=== PATIENT | female | born 1950 | race Caucasian/White ===

== ENCOUNTER 2017-06-12 08:34 | Inpatient (IN) | payer BC, OTHER ==
--- NOTE | 2017-06-12 09:14 | PDOC ---
History of Present Illness - General Chief Complaint: Pain Stated Complaint: PRE-OP Time Seen by Provider: 06/12/17 08:45 - History of Present Illness Initial Comments: 06/12/17 09:37 The patient is a 66 year old female with a history of HTN, HLD, DM, PVD, who presents for evaluation and admission for a left ischemic toe. The patient reports a wound to her left 4th toe over the past month for which she has been followed by a podietrist. The patient reports continued symptoms despite treatment with antifungals, antibiotics, and nail removal. The patient was evaluated by Dr. Harper and there was concern for PVD that prevented wound healing as well as ischemic toe and sent the patient for admission. She reports some burning pain to the toe, but otherwise denies other symptoms. The patient denies fevers, chills, SOB, chest pain, nausea, vomiting, abdominal pain , or changes with urination or bowel movements. Past History - Past Medical History Allergies/Adverse Reactions: Allergies Allergy/AdvReac Type Severity Reaction Status Date / Time paxton Allergy Severe Itching Verified 06/12/17 08:37 COPD: No Diabetes: Yes HTN: Yes Hypercholesterolemia: Yes - Immunization History Immunization Up to Date: Yes - Suicide/Smoking/Psychosocial Hx Smoking History: Former smoker Have you smoked in the past 12 months: Yes If you are a former smoker, when did you quit?: 1 MONTH AGO Information on smoking cessation initiated: No Review of Systems - Review of Systems Comments:: 06/12/17 09:42 Constitutional: No fevers, chills, fatigue, malaise HEENT: No Rhinorrhea, nasal congestion, visual changes Cardiovascular: No chest pain, syncope, palpitations, lightheadedness Respiratory: No Cough, SOB, Hemoptysis, Gastrointestinal: No Abdominal pain, Nausea, Vomiting, Constipation, Diarrhea, Melena Genitourinary: No Dysuria, Frequency, Urgency, Hesitancy, Hematuria, Flank pain Musculoskeletal: Pain to the 4th left toe. No Myalgia, arthralgia Skin: No rashes, itching, bruising, pallor Neurologic: No Headache, Dizziness, Numbness, Weakness, or Tingling Psychiatric: No Hallucinations. No SI or HI *Physical Exam - Vital Signs Last Vital Signs Temp Pulse Resp BP Pulse Ox 97.7 F 78 18 141/60 100 06/12/17 08:37 06/12/17 08:37 06/12/17 08:37 06/12/17 08:37 06/12/17 08:37 - Physical Exam Comments: 06/12/17 09:43 General Appearance: Nourished. No Apparent Distress HEENT: EOMI, DEVEN. No Pharyngeal Erythema, Tonsillar Exudate, Tonsillar Erythema Neck: No Cervical Lymphadenopathy Respiratory/Chest: Lungs Clear, Normal Breath Sounds. No Crackles, Rales, Rhonchi, Wheezing Cardiovascular: Regular Rhythm, Regular Rate. No Murmur, Gallops, Rubs Gastrointestinal/Abdominal: Normal Bowel Sounds, Soft. No Guarding, Rebound, Tenderness Musculoskeletal: No CVA Tenderness Extremity: Ischemic left 4th toe. Diminished dp pulses in the lower extremities bilaterally but palpable. 4 sec capillary refill in the extremities. Possible monophasic flow on doppler of the dp and posterior tibial pulses. Integumentary: Normal Color, Dry, Warm Neurologic: Fully Oriented, Alert, Normal Mood/Affect, Normal Response, ED Treatment Course - LABORATORY CBC & Chemistry Diagram: 06/12/17 09:30 06/12/17 09:30 Medical Decision Making - Medical Decision Making 06/12/17 09:55 The patient is a 66 year old female with a history of HTN, HLD, DM, PVD, who presents for evaluation and admission for a left ischemic toe. Given the patient's physical exam, it is concerning for an ischemic digit or worsening wound infection. We will obtain a cbc, cmp, troponin, coags, ekg, and chest plain film to evaluate further and admit the patient for further management. We will continue to monitor and reassess in the meantime. 06/12/17 11:36 CBC, cmp, troponin, coags are unremarkable. Chest plain film is unremarkable. We discussed the case with Dr. Shea who is covering for Dr. Valladares who accepted the patient for admission. *DC/Admit/Observation/Transfer Diagnosis at time of Disposition: Ischemic necrosis of toe - Discharge Dispostion Condition at time of disposition: Stable Admit: Yes - Referrals Referrals: Bernard Valladares MD [Primary Care Provider] - - Patient Instructions - Post Discharge Activity
[2017-06-12 10:01] LABS: BASO % 1.2 % (0-2.0); EOS % 1.9 % (0-4.5); HEMATOCRIT 34.3 % (32.4-45.2); HEMOGLOBIN 11.7 GM/dL (10.7-15.3); LYMPH % 16.7 % (8-40); MCH 30.6 pg (25.7-33.7); MCHC 33.9 g/dl (32.0-36.0); MEAN CELL VOLUME 90.2 fl (80-96); MEAN PLT VOLUME 10.2 fl (7.5-11.1); MONO % 7.5 % (3.8-10.2); NEUT % 72.7 % (42.8-82.8); PLATELET COUNT 231 K/MM3 (134-434); RBC 3.81 M/mm3 (3.60-5.2); RDW 14.8 % (11.6-15.6); WHITE BLOOD COUNT 8.4 K/mm3 (4.0-10.0)
[2017-06-12 10:14] LABS: INR 0.94 (0.82-1.09); PROTHROMBIN TIME (PATIENT) 10.6 SEC (9.98-11.88)
[2017-06-12 10:16] LABS: ACTIVATED PTT 30.4 SECONDS (26.9-34.4)
[2017-06-12 10:35] LABS: ALBUMIN 3.5 g/dl (3.4-5.0); ANION GAP 9 (8-16); BILIRUBIN,TOTAL 0.4 mg/dL (0.2-1.0); BLOOD UREA NITROGEN 19 mg/dL (7-18); CALCIUM 9.2 mg/dL (8.5-10.1); CHLORIDE 102 mmol/L (98-107); CO2 27 mmol/L (21-32); CREATININE 0.8 mg/dL (0.55-1.02); GLUCOSE,RANDOM 145 mg/dL (74-106); SGPT/ALT 30 U/L (12-78); SODIUM 138 mmol/L (136-145); TOT PROT 7.3 g/dl (6.4-8.2)
[2017-06-12 10:37] LABS: ALK PHOS 109 U/L (45-117)
[2017-06-12 11:21] LABS: POTASSIUM 5.1 mmol/L (3.5-5.1); SGOT/AST 39 U/L (15-37)
--- NOTE | 2017-06-12 11:40 | EKG ---
Test Reason : Blood Pressure : / mmHG Vent. Rate : 059 BPM Atrial Rate : 059 BPM P-R Int : 120 ms QRS Dur : 102 ms QT Int : 436 ms P-R-T Axes : 050 054 019 degrees QTc Int : 431 ms SINUS BRADYCARDIA POSSIBLE LEFT ATRIAL ENLARGEMENT LEFT VENTRICULAR HYPERTROPHY NONSPECIFIC ST ABNORMALITY ABNORMAL ECG WHEN COMPARED WITH ECG OF 16-AUG-2006 12:45, NO SIGNIFICANT CHANGE WAS FOUND Confirmed by WOODY SANCHEZ MD ([id number]) on 06/12/2017 11:40:09 AM Referred By: Confirmed By:WOODY SANCHEZ MD
--- NOTE | 2017-06-12 12:20 | PDOC ---
Attending Attestation - Resident Resident Name: Mahad Boschel - ED Attending Attestation I have performed the following: I have examined & evaluated the patient, The case was reviewed & discussed with the resident, I agree w/resident's findings & plan - HPI HPI: 06/12/17 12:17 Patient with known history of peripheral arterial vascular disease presents with blackening of the distal right second toe. She states the toe has been dark for almost a month but is getting worse. She is applying some cream. There is been no redness, no fever, and no discharge from the wound. - Physicial Exam PE: 06/12/17 12:18 Patient is afebrile. Heart and lungs are normal. Abdomen is benign. Right lower extremity reveals significantly decreased posterior tibial and dorsalis pedis pulses in the right leg. The right second toe has a blackened area at the distal toe. There is no open wound and no discharge. The patient applied white cream to the area. On Doppler testing, there is unit aphasic poor flow to the posterior tibial and dorsalis pedis arteries. Capillary refill in the toes 1, and 3 through 5 is 3-4 seconds. Sensation is intact. Range of motion is intact. - Medical Decision Making 06/12/17 12:19 Impression: Peripheral arterial disease with ischemia of the distal right second toe. No rest pain. Plan: Patient to be admitted to vascular surgery. She reports that her vascular surgeon already did flow studies. Laboratory studies and x-ray with EKG ordered for preop assessment. Laboratory Results - last 24 hr 06/12/17 06/12/17 06/12/17 09:30 09:30 09:30 WBC 8.4 RBC 3.81 Hgb 11.7 Hct 34.3 MCV 90.2 MCH 30.6 MCHC 33.9 RDW 14.8 Plt Count 231 MPV 10.2 Neutrophils % 72.7 Lymphocytes % 16.7 Monocytes % 7.5 Eosinophils % 1.9 Basophils % 1.2 PT with INR 10.60 INR 0.94 PTT (Actin FS) 30.4 Sodium 138 Potassium 5.1 Chloride 102 Carbon Dioxide 27 Anion Gap 9 BUN 19 H Creatinine 0.8 Creat Clearance w eGFR > 60 Random Glucose 145 H Calcium 9.2 Total Bilirubin 0.4 AST 39 H ALT 30 Alkaline Phosphatase 109 Creatine Kinase 149 Troponin I 0.02 Total Protein 7.3 Albumin 3.5
[2017-06-12] MEDS ORDERED: VANCOMYCIN 1,000 MG in DEXTROSE 5%-WATER - 250 ML IVPB ONE (14:40)
[2017-06-12] MEDS ORDERED: PIPERACIL/TAZOB 3.375 GM 3.375 GM/50 ML PREMIX IVPB ONE (14:41)
--- NOTE | 2017-06-12 14:44 | HP ---
Admitting History and Physical - Primary Care Physician PCP: Jolie Sun I - Admission Chief Complaint: admitted for toe swelling History of Present Illness: The patient is a 66 year old female with a history of HTN, HLD, DM, PVD, who presents for evaluation and admission for a left 4th ischemic toe. The patient reports a wound to her left 4th toe over the past month for which she has been followed by a podietrist. The patient reports continued symptoms despite treatment with antifungals, antibiotics, and nail removal. The patient was evaluated by Dr. Harper and there was concern for PVD that prevented wound healing as well as ischemic toe and sent the patient for admission. She reports some burning pain to the toe, but otherwise denies other symptoms. The patient denies fevers, chills, SOB, chest pain, nausea, vomiting, abdominal pain , or changes with urination or bowel movements. History Source: Patient - Past Medical History Cardiovascular: Yes: AFIB, HTN, Hyperlipdemia Endocrine: Yes: Diabetes Insipidus - Past Surgical History Past Surgical History: Yes: None - Smoking History Smoking history: Former smoker Have you smoked in the past 12 months: Yes If you are a former smoker, when did you quit?: 1 MONTH AGO Home Medications - Allergies Allergies/Adverse Reactions: Allergies Allergy/AdvReac Type Severity Reaction Status Date / Time paxton Allergy Severe Itching Verified 06/12/17 08:37 Review of Systems - Review of Systems Musculoskeletal: reports: Extremity Pain, Joint Swelling, Other (swollen tender to touch left 3/4 toes, macerated skin bluish discoloration of toe nail) Physical Examination Vital Signs: Vital Signs Temperature 97.7 F 06/12/17 08:37 Pulse Rate 78 06/12/17 08:37 Respiratory Rate 18 06/12/17 08:37 Blood Pressure 141/60 06/12/17 08:37 O2 Sat by Pulse Oximetry (%) 100 06/12/17 08:37 Constitutional: Yes: Calm Cardiovascular: Yes: Regular Rate and Rhythm, S1, S2 Respiratory: Yes: CTA Bilaterally Gastrointestinal: Yes: Normal Bowel Sounds, Soft Extremities: Yes: Erythema, Other (swollen left 3/4 toes) Edema: Yes Neurological: Yes: Alert, Oriented Labs: CBC, BMP 06/12/17 09:30 06/12/17 09:30 Problem List - Problems (1) Ischemic necrosis of toe Assessment/Plan: vascular evaluation iv abx one dose ID eval podiarty xray of toes Code(s): I96 - GANGRENE, NOT ELSEWHERE CLASSIFIED (2) Diabetes Assessment/Plan: bgm sliding scale insulin lipid profile- cannot tolerate statin cause muscle cramps Code(s): E11.9 - TYPE 2 DIABETES MELLITUS WITHOUT COMPLICATIONS Qualifiers: Diabetes mellitus type: type 2 (3) HTN (hypertension) Assessment/Plan: diovan Code(s): I10 - ESSENTIAL (PRIMARY) HYPERTENSION
[2017-06-12] MEDS ORDERED: PIPERACILLIN/TAZOB 3.375 GM 3.375 GM in DEXTROSE 5%-WATER - 50 ML IVPB ONE (15:00)
[2017-06-12] MEDS ORDERED: PIPERACILLIN/TAZOB 3.375 GM 3.375 GM/50 ML BAG IVPB ONE (15:17)
[2017-06-12] MEDS ORDERED: VANCOMYCIN 1 GRAM (PRE-DOCKED) 1,000 MG/250 ML BAG IVPB ONE (15:17)
[2017-06-12] MEDS ORDERED: ACETAMINOPHEN 325 MG TABLET (FP) ONE (15:18)
[2017-06-12] MEDS: ACETAMINOPHEN 325 MG TABLET (FP) PO PRN ×2 (15:27→22:17)
[2017-06-12] MEDS: INSULIN SLIDING SCALE (NOVOLOG) 1 VIAL SQ SCH ×2 (16:46→22:22)
--- NOTE | 2017-06-12 16:52 | CON.CARD ---
Consult Consult Specialty:: Cardiology Reason for Consultation:: PreOp evaluation - History of Present Illness Chief Complaint: Cellulitis of the toe History of Present Illness: This is a 66 year old female with a PMH of HTN, HLD, DM, and PVD. She stated to me that she has a history of rheumatic heart disease. She presents now wit an ischemic left toe. She denies cardiac symptoms. EKG Sinus bradycardia at 59 BPM with normal intervals, normal axis, and NSSTTW changes. - Past Medical History Cardio/Vascular: Yes: AFIB, HTN, Hyperlipdemia Endocrine: Yes: Diabetes Insipidus - Past Surgical History Past Surgical History: Yes: None - Smoking History Smoking history: Former smoker Have you smoked in the past 12 months: Yes If you are a former smoker, when did you quit?: 1 MONTH AGO Home Medications - Allergies Allergies/Adverse Reactions: Allergies Allergy/AdvReac Type Severity Reaction Status Date / Time paxton Allergy Severe Itching Verified 06/12/17 08:37 Review of Systems Findings/Remarks: As per HPI Vital Signs: Vital Signs Temperature 97.7 F 06/12/17 08:37 Pulse Rate 76 06/12/17 13:55 Respiratory Rate 16 06/12/17 13:55 Blood Pressure 111/59 06/12/17 13:55 O2 Sat by Pulse Oximetry (%) 97 06/12/17 13:55 Constitutional: Yes: Well Nourished, No Distress HENT: Yes: WNL Neck: Yes: WNL Respiratory: Yes: CTA Bilaterally Gastrointestinal: Yes: Soft Cardiovascular: Yes: Regular Rate and Rhythm (NL S1S2, no MRHG) Extremities: Yes: WNL Edema: No Neurological: Yes: Alert, Oriented (Grossly non focal) - Other Data Labs, Other Data: CBC, BMP 06/12/17 09:30 06/12/17 09:30 INR, PTT INR 0.94 (0.82-1.09) 06/12/17 09:30 Troponin, BNP 06/12/17 09:30 Troponin I 0.02 Troponin, BNP 06/12/17 09:30 Troponin I 0.02 Assessment/Plan Preoperative Cardiac Evaluation Based on my clinical evaluation, EKG, and laboratory analysis, there are no cardiac contraindications to Vascular surgery. There is no need to start Beta Blockers at this time. An echocardiogram would be helpful to categorize the supposed "Rheumatic Heart Disease" history. Continue Valsartan 80 mg PO daily
--- NOTE | 2017-06-12 16:55 | PN ---
Progress Note (short form) - Note Progress Note: Vascular Surgery Pt seen and examined in ER. Seen in vascular clinic 2 weeks ago. Pt had US done in the office which showed --- Right leg - occluded prox superficial artery with reconstitution at above knee popliteal artery. Left leg -- Occluded proximal superficial femoral artery with reconstitution at above knee popliteal artery Mid tibio peroneal trunk 75-99% stenosis Pt will need angiogram once cleared from a medical and cardiac standpoint. Edvin Harper DO
[2017-06-12 18:30] VITALS: BMI 23.2
[2017-06-12] MEDS: HEPARIN NA (PORCINE) 5,000 UNITS/ML 1ML VIAL SQ SCH (22:17)
[2017-06-13] MEDS: ACETAMINOPHEN 325 MG TABLET (FP) PO PRN ×2 (03:43→15:05)
[2017-06-13] MEDS ORDERED: oxyCODONE HCL 5 MG TABLET PO ONE (04:15)
[2017-06-13] MEDS: INSULIN SLIDING SCALE (NOVOLOG) 1 VIAL SQ SCH ×4 (06:06→21:22)
[2017-06-13 08:02] LABS: BASO % 0.8 % (0-2.0); EOS % 2.8 % (0-4.5); HEMATOCRIT 31.1 % (32.4-45.2); HEMOGLOBIN 10.6 GM/dL (10.7-15.3); LYMPH % 34.1 % (8-40); MCH 30.7 pg (25.7-33.7); MCHC 34.2 g/dl (32.0-36.0); MEAN CELL VOLUME 89.8 fl (80-96); MEAN PLT VOLUME 10.1 fl (7.5-11.1); MONO % 6.9 % (3.8-10.2); NEUT % 55.4 % (42.8-82.8); PLATELET COUNT 188 K/MM3 (134-434); RBC 3.47 M/mm3 (3.60-5.2); RDW 14.1 % (11.6-15.6); WHITE BLOOD COUNT 8.1 K/mm3 (4.0-10.0)
[2017-06-13 08:18] LABS: INR 1.04 (0.82-1.09); PROTHROMBIN TIME (PATIENT) 11.7 SEC (9.98-11.88)
[2017-06-13 09:08] LABS: CHLORIDE 102 mmol/L (98-107); POTASSIUM 3.4 mmol/L (3.5-5.1); SODIUM 136 mmol/L (136-145)
[2017-06-13 09:10] LABS: CHOLESTEROL 208 mg/dL (50-200); HDL CHOLESTEROL 42 mg/dL (40-60); LDL CHOLESTEROL (ONLY SJRH) 140 mg/dL (5-100); TRIGLYCERIDES 194 mg/dL (35-160)
--- NOTE | 2017-06-13 09:19 | PN ---
Progress Note (short form) - Note Progress Note: Vascular Surgery Pt cleared by cardiology. Will order CTA to look at runoff into foot to help plan procedure. Edvin Harper DO
[2017-06-13 09:20] LABS: ALBUMIN 3.3 g/dl (3.4-5.0); ALK PHOS 95 U/L (45-117); ANION GAP 7 (8-16); BILIRUBIN,TOTAL 0.7 mg/dL (0.2-1.0); BLOOD UREA NITROGEN 20 mg/dL (7-18); CALCIUM 8.5 mg/dL (8.5-10.1); CO2 27 mmol/L (21-32); CREATININE 0.8 mg/dL (0.55-1.02); GLUCOSE,RANDOM 131 mg/dL (74-106); MAGNESIUM 1.7 mg/dL (1.8-2.4); PHOSPHOROUS 3.3 mg/dL (2.5-4.9); SGOT/AST 13 U/L (15-37); SGPT/ALT 21 U/L (12-78); TOT PROT 6.1 g/dl (6.4-8.2)
--- NOTE | 2017-06-13 09:34 | CON.ID ---
Consult Consult Specialty:: Infectious Disease Referred by:: Primary Team Reason for Consultation:: Infected Toe - History of Present Illness History of Present Illness: 66 year old F with pmh of HTN, HLD, PVD, and NIDDM presented with a painful 4th left toe. Patient stubbed her toe on a table 1 month prior and has been having worsening pain, redness, and swelling in her toe. Patient has been following with Podiatry for this toe. She has had multiple courses of abx without improvement as well as nail removal. Patient then was sent to Dr. Harper for a possible ischemic toe. Patient denies fever, chills, abdominal pain, shortness of breath, chest pain, urinary symptoms. Patient lives at home by herself with 1 cat. Denies recent travel. Prior smoker, denies alcohol, denies drug use. - Past Medical History Cardio/Vascular: Yes: AFIB, HTN, Hyperlipdemia ...: No Endocrine: Yes: Diabetes Insipidus - Past Surgical History Past Surgical History: Yes: None - Alcohol/Substance Use Hx Alcohol Use: Yes (2-3 BEERS A WEEK / WINE OCCASSIONALLY A WEEK) - Smoking History Smoking history: Former smoker Have you smoked in the past 12 months: Yes Aproximately how many cigarettes per day: 7 If you are a former smoker, when did you quit?: ONE MONTH AGO Home Medications - Allergies Allergies/Adverse Reactions: Allergies Allergy/AdvReac Type Severity Reaction Status Date / Time paxton Allergy Severe Itching Verified 06/12/17 08:37 - Home Medications Home Medications: Ambulatory Orders Aspirin [ASA -] 81 mg PO HS 06/12/17 Losartan/Hydrochlorothiazide [Hyzaar 100-25 Tablet] 1 each PO DAILY 06/12/17 Metformin HCl 1,000 mg PO BID 06/12/17 Silver Sulfadiazine 1% Top Cr [Silvadene -] 1 applic TP DAILY 06/12/17 Toprol Xl 100 mg PO DAILY 06/12/17 Review of Systems - Review of Systems Constitutional: denies: Chills, Fever Eyes: reports: No Symptoms HENT: reports: No Symptoms Neck: reports: No Symptoms Cardiovascular: reports: No Symptoms Respiratory: reports: No Symptoms Gastrointestinal: reports: No Symptoms Genitourinary: reports: No Symptoms Musculoskeletal: reports: Other (Toe pain) Integumentary: reports: Other (blue skin surrounding toe) Physical Exam Vital Signs: Vital Signs Temperature 98.5 F 06/13/17 09:00 Pulse Rate 57 L 06/13/17 09:00 Respiratory Rate 18 06/13/17 09:00 Blood Pressure 118/51 06/13/17 09:00 O2 Sat by Pulse Oximetry (%) 98 06/12/17 21:00 Constitutional: Yes: Well Nourished, No Distress, Calm Eyes: Yes: Conjunctiva Clear, EOM Intact HENT: Yes: Atraumatic, Normocephalic Neck: Yes: Supple, Trachea Midline Cardiovascular: Yes: Regular Rate and Rhythm, S1, S2 Respiratory: Yes: Regular, CTA Bilaterally Gastrointestinal: Yes: Normal Bowel Sounds, Soft. No: Tenderness Musculoskeletal: Yes: WNL Extremities: Yes: Other (Left foot- onychomycosis surrounding toenails. Blue discoloration and tenderness of 4th toe with maceration in between 3rd and 4th digit.) Edema: No Neurological: Yes: Alert, Oriented Psychiatric: Yes: Alert, Oriented Labs: CBC, BMP 06/13/17 06:30 06/13/17 06:30 Laboratory Tests 06/13/17 06/13/17 06/13/17 06:30 06:30 06:30 WBC 8.1 Hgb 10.6 L Hct 31.1 L Plt Count 188 ESR BUN 20 H Creatinine 0.8 Hemoglobin A1c % 6.6 H Triglycerides Cholesterol Total LDL Cholesterol HDL Cholesterol 06/13/17 06/13/17 06:30 06:30 WBC Hgb Hct Plt Count ESR 36 H BUN Creatinine Hemoglobin A1c % Triglycerides 194 H Cholesterol 208 H Total LDL Cholesterol 140 H HDL Cholesterol 42 Assessment/Plan Assessment: 1. Left 4th toe infection/maceration 2. Vascular occlusion 3. Non Insulin Dependent Diabetes Mellitus Plan: -Augmentin 875 BID -Vascular Consult with Dr. Harper -Cardiology on board
--- NOTE | 2017-06-13 10:23 | PN ---
Teaching Attending Note Name of Resident: Ziyad Malik ATTENDING PHYSICIAN STATEMENT I saw and evaluated the patient. I reviewed the resident's note and discussed the case with the resident. I agree with the resident's findings and plan as documented. SUBJECTIVE:Case reviewed with resident and Dr Harper OBJECTIVE:Major issue now seem vascular with severe arterial vascular disease. Component of infection ulcer between 3rd 4th toe ASSESSMENT AND PLAN: [id number] bid for a week with vascular workup per Dr Harper angiogram Seen by cardiology Problem List - Problems (1) Peripheral vascular disease of lower extremity with ulceration Code(s): I73.9 - PERIPHERAL VASCULAR DISEASE, UNSPECIFIED; L97.909 - NON-PRS CHRONIC ULC UNSP PRT OF UNSP LOW LEG W UNSP SEVERITY (2) Diabetes Code(s): E11.9 - TYPE 2 DIABETES MELLITUS WITHOUT COMPLICATIONS Qualifiers: Diabetes mellitus type: type 2 (3) Ischemic necrosis of toe Code(s): I96 - GANGRENE, NOT ELSEWHERE CLASSIFIED
[2017-06-13] MEDS ORDERED: PT OWN MED DRAWER 7, Y5N ONE (11:11)
[2017-06-13] MEDS: HEPARIN NA (PORCINE) 5,000 UNITS/ML 1ML VIAL SQ SCH ×2 (11:51→21:30)
[2017-06-13] MEDS: VALSARTAN 80 MG TABLET (UD) PO SCH (11:51)
[2017-06-13] MEDS ORDERED: MAGNESIUM 1GM/D5W 100ML - 100 ML IVPB IVPB ONE (14:24)
[2017-06-13] MEDS ORDERED: POTASSIUM CHLORIDE TABS 20 MEQ TABLET.ER (FP) PO ONE (14:25)
--- NOTE | 2017-06-13 14:30 | PN ---
Progress Note, Physician Chief Complaint: patient in bed awake alert - Current Medication List Current Medications: Active Medications Acetaminophen (Tylenol -) 650 mg PO Q6H PRN PRN Reason: FEVER Last Admin: 06/13/17 03:43 Dose: 650 mg Amoxicillin/Clavulanate Potassium (Augmentin - 875mg Tablet) 1 tab PO BID@0800, 1730 [facility] Heparin Sodium (Porcine) (Heparin -) 5,000 unit SQ BID [facility] Last Admin: 06/13/17 11:51 Dose: 5,000 unit Insulin Aspart (Novolog Vial Sliding Scale -) 1 vial SQ ACHS [facility] PRN Reason: Protocol Last Admin: 06/13/17 11:52 Dose: Not Given Magnesium Sulfate (Magnesium Sulfate) 1 gm IVPB ONCE ONE Stop: 06/13/17 14:25 Potassium Chloride (K-Dur -) 20 meq PO ONCE ONE Stop: 06/13/17 14:26 Valsartan (Diovan -) 80 mg PO DAILY [facility] Last Admin: 06/13/17 11:51 Dose: 80 mg - Objective Vital Signs: Vital Signs Temperature 98.5 F 06/13/17 09:00 Pulse Rate 57 L 06/13/17 09:00 Respiratory Rate 18 06/13/17 09:00 Blood Pressure 118/51 06/13/17 09:00 O2 Sat by Pulse Oximetry (%) 98 06/12/17 21:00 Constitutional: Yes: Calm Cardiovascular: Yes: Regular Rate and Rhythm, S1, S2 Respiratory: Yes: CTA Bilaterally Gastrointestinal: Yes: Normal Bowel Sounds, Soft Extremities: Yes: Other (foot swelling decreased slightly) Neurological: Yes: Alert, Oriented Labs: CBC, BMP 06/13/17 06:30 06/13/17 06:30 INR, PTT INR 1.04 (0.82-1.09) 06/13/17 06:30 Problem List - Problems (1) Ischemic necrosis of toe Assessment/Plan: vascular evaluation seen plan for angiogram- aorta with CTA runoff ordered iv abx one dose ID eval podiarty xray of toes Code(s): I96 - GANGRENE, NOT ELSEWHERE CLASSIFIED (2) Diabetes Assessment/Plan: bgm sliding scale insulin lipid profile- cannot tolerate statin cause muscle cramps lipid panel noted an lovaza ordered Code(s): E11.9 - TYPE 2 DIABETES MELLITUS WITHOUT COMPLICATIONS Qualifiers: Diabetes mellitus type: type 2 (3) HTN (hypertension) Assessment/Plan: diovan Code(s): I10 - ESSENTIAL (PRIMARY) HYPERTENSION (4) Disorder of electrolytes Assessment/Plan: magnesium and potassium ordered recheck in am Code(s): E87.8 - OTH DISORDERS OF ELECTROLYTE AND FLUID BALANCE, NEC
[2017-06-13] MEDS: AMOX TR/POT CLAV 875MG/125MG TABLETS (FP) PO SCH (17:34)
[2017-06-13] MEDS: oxyCODONE HCL 5 MG TABLET PO PRN (18:11)
--- NOTE | 2017-06-13 19:37 | PN ---
Progress Note (short form) - Note Progress Note: Vascular Surgery Pt seen and examined. Gangrene of left toe. CTA shows SFA occlusion , and popliteal artery stenosis. Right leg shows sfa occlusion. Pt has been a long time smoker. Pt will need angiogram on friday. Edvin Harper DO
[2017-06-13] MEDS: OMEGA-3 ACID ETHYL ESTERS (FATTY-ACIDS) 1 GM CAPSULE (FP) PO SCH (21:30)
[2017-06-14] MEDS: oxyCODONE HCL 5 MG TABLET PO PRN ×4 (00:43→19:55)
[2017-06-14] MEDS: INSULIN SLIDING SCALE (NOVOLOG) 1 VIAL SQ SCH ×4 (06:05→21:42)
--- NOTE | 2017-06-14 08:08 | CONSULT ---
Consult - text type - Consultation Consultation Note: Podiatry Consultation: 66 year old DM, PVD F presents for admission for gangrenous changes to L 4th digit after ingrown nail procedure, for approximately 1 month. Denies F/V/N/C/ SOB/CP. Afebrile, VSS. PMHx: DM, HTN, HLP, PVD Meds: noted ALL: paxton LIBBY: L foot: pedal pulses non-palpable, TG wnl, CFT absent to fourth digit. Gangrenous changes distal 1/2 of fourth digit, no purulence, no fluctuance, no ascending cellulitis, no signs of infection. Pedal pulses non-palpable. WBC: 8.1 ESR: 36 L foot XR: no acute process seen Imp: 66 year old DM, PVD F with L fourth digit gangrene 1. IV abx 2. For angio Friday 3. Will follow based on angio. Thanks for the consult. Gustabo Mejia DPM
[2017-06-14 08:25] LABS: ALBUMIN 3.6 g/dl (3.4-5.0); ANION GAP 6 (8-16); BLOOD UREA NITROGEN 13 mg/dL (7-18); CALCIUM 9.2 mg/dL (8.5-10.1); CHLORIDE 102 mmol/L (98-107); CO2 30 mmol/L (21-32); GLUCOSE,RANDOM 146 mg/dL (74-106); MAGNESIUM 1.9 mg/dL (1.8-2.4); POTASSIUM 3.6 mmol/L (3.5-5.1); SODIUM 138 mmol/L (136-145)
[2017-06-14 08:29] LABS: ALK PHOS 101 U/L (45-117); BILIRUBIN,TOTAL 0.5 mg/dL (0.2-1.0); CREATININE 0.7 mg/dL (0.55-1.02); SGOT/AST 15 U/L (15-37); SGPT/ALT 21 U/L (12-78)
[2017-06-14] MEDS ORDERED: PT OWN MED DRAWER 7, Y5N ONE ×3 (09:53→21:41)
[2017-06-14] MEDS: AMOX TR/POT CLAV 875MG/125MG TABLETS (FP) PO SCH ×2 (09:54→17:41)
[2017-06-14] MEDS: VALSARTAN 80 MG TABLET (UD) PO SCH (09:54)
[2017-06-14] MEDS: HEPARIN NA (PORCINE) 5,000 UNITS/ML 1ML VIAL SQ SCH ×2 (09:55→21:42)
[2017-06-14] MEDS: OMEGA-3 ACID ETHYL ESTERS (FATTY-ACIDS) 1 GM CAPSULE (FP) PO SCH ×2 (09:55→21:42)
[2017-06-14] MEDS: ACETAMINOPHEN 325 MG TABLET (FP) PO PRN (12:47)
[2017-06-14] MEDS ORDERED: DOCUSATE SODIUM 100 MG CAPSULE (FP) PO PRN (17:43)
[2017-06-14] MEDS ORDERED: ACETAMINOPHEN 325 MG TABLET (FP) PO PRN (17:44)
--- NOTE | 2017-06-14 17:50 | PN ---
Progress Note, Physician Chief Complaint: Arterial occlusion History of Present Illness: NAD for Angio on Friday - Current Medication List Current Medications: Active Medications Acetaminophen (Tylenol -) 650 mg PO Q6H PRN PRN Reason: PAIN OR FEVER Amoxicillin/Clavulanate Potassium (Augmentin - 875mg Tablet) 1 tab PO BID@0800, 1730 [facility] Last Admin: 06/14/17 17:41 Dose: 1 tab Docusate Sodium (Colace -) 100 mg PO BID PRN PRN Reason: CONSTIPATION Heparin Sodium (Porcine) (Heparin -) 5,000 unit SQ BID [facility] Last Admin: 06/14/17 09:55 Dose: 5,000 unit Insulin Aspart (Novolog Vial Sliding Scale -) 1 vial SQ ACHS [facility] PRN Reason: Protocol Last Admin: 06/14/17 17:14 Dose: Not Given Morphine Sulfate (Morphine Injection -) 1 mg IVPUSH Q4H PRN PRN Reason: PAIN LEVEL 7 - 10 Skfts-6-Bwzg Ethyl Esters (Lovaza -) 2 gm PO BID [facility] Last Admin: 06/14/17 09:55 Dose: 2 gm Oxycodone HCl (Roxicodone -) 5 mg PO Q6H PRN PRN Reason: PAIN LEVEL 4 - 6 Valsartan (Diovan -) 80 mg PO DAILY [facility] Last Admin: 06/14/17 09:54 Dose: 80 mg - Objective Vital Signs: Vital Signs Temperature 97.6 F 06/14/17 16:05 Pulse Rate 70 06/14/17 16:05 Respiratory Rate 18 06/14/17 16:05 Blood Pressure 119/71 06/14/17 16:05 O2 Sat by Pulse Oximetry (%) 95 06/13/17 21:00 Constitutional: Yes: Well Nourished, No Distress, Calm Cardiovascular: Yes: Regular Rate and Rhythm Respiratory: Yes: Regular Musculoskeletal: Yes: Muscle Pain (BLLE) Edema: Yes Neurological: Yes: Alert, Oriented Psychiatric: Yes: Alert, Oriented Labs: CBC, BMP 06/13/17 06:30 06/14/17 07:00 INR, PTT INR 1.04 (0.82-1.09) 06/13/17 06:30 Problem List - Problems (1) HTN (hypertension) Assessment/Plan: -seen by cardiology -controlled Code(s): I10 - ESSENTIAL (PRIMARY) HYPERTENSION (2) Ischemic necrosis of toe Assessment/Plan: -pain management -seen by Vascular and podiatry -For Angio on Friday -po abx Code(s): I96 - GANGRENE, NOT ELSEWHERE CLASSIFIED (3) Peripheral vascular disease of lower extremity with ulceration Code(s): I73.9 - PERIPHERAL VASCULAR DISEASE, UNSPECIFIED; L97.909 - NON-PRS CHRONIC ULC UNSP PRT OF UNSP LOW LEG W UNSP SEVERITY Assessment/Plan see problem list
[2017-06-15] MEDS: MORPHINE SULFATE 10 MG/1 ML *VIAL IVPUSH PRN (01:59)
[2017-06-15] MEDS: INSULIN SLIDING SCALE (NOVOLOG) 1 VIAL SQ SCH ×4 (06:20→21:32)
[2017-06-15 07:44] LABS: EOS % 3.3 % (0-4.5); HEMOGLOBIN 10.5 GM/dL (10.7-15.3); LYMPH % 38.1 % (8-40); MCH 30.7 pg (25.7-33.7); MEAN CELL VOLUME 90.3 fl (80-96); MEAN PLT VOLUME 10.1 fl (7.5-11.1); MONO % 10.5 % (3.8-10.2); NEUT % 47.1 % (42.8-82.8); PLATELET COUNT 179 K/MM3 (134-434); RBC 3.43 M/mm3 (3.60-5.2); RDW 13.7 % (11.6-15.6); WHITE BLOOD COUNT 6.1 K/mm3 (4.0-10.0)
[2017-06-15 08:04] LABS: ALBUMIN 3.3 g/dl (3.4-5.0); ANION GAP 5 (8-16); BLOOD UREA NITROGEN 12 mg/dL (7-18); CHLORIDE 104 mmol/L (98-107); CO2 30 mmol/L (21-32); GLUCOSE,RANDOM 117 mg/dL (74-106); POTASSIUM 4.4 mmol/L (3.5-5.1); SODIUM 139 mmol/L (136-145)
[2017-06-15 08:09] LABS: ALK PHOS 96 U/L (45-117); BILIRUBIN,TOTAL 0.5 mg/dL (0.2-1.0); CREATININE 0.7 mg/dL (0.55-1.02); SGOT/AST 21 U/L (15-37); SGPT/ALT 26 U/L (12-78); TOT PROT 6.1 g/dl (6.4-8.2)
[2017-06-15] MEDS: AMOX TR/POT CLAV 875MG/125MG TABLETS (FP) PO SCH ×2 (08:48→17:31)
[2017-06-15] MEDS ORDERED: PT OWN MED DRAWER 7, Y5N ONE ×2 (10:15→20:18)
[2017-06-15] MEDS: OMEGA-3 ACID ETHYL ESTERS (FATTY-ACIDS) 1 GM CAPSULE (FP) PO SCH ×2 (10:19→21:32)
[2017-06-15] MEDS: VALSARTAN 80 MG TABLET (UD) PO SCH (10:19)
[2017-06-15] MEDS: HEPARIN NA (PORCINE) 5,000 UNITS/ML 1ML VIAL SQ SCH ×2 (10:19→21:31)
--- NOTE | 2017-06-15 12:36 | PN ---
Progress Note, Physician Chief Complaint: Arterial occlusion History of Present Illness: NAD for Angio on Friday - Current Medication List Current Medications: Active Medications Acetaminophen (Tylenol -) 650 mg PO Q6H PRN PRN Reason: FEVER Amoxicillin/Clavulanate Potassium (Augmentin - 875mg Tablet) 1 tab PO BID@0800, 1730 [facility] Last Admin: 06/15/17 08:48 Dose: 1 tab Docusate Sodium (Colace -) 100 mg PO BID PRN PRN Reason: CONSTIPATION Heparin Sodium (Porcine) (Heparin -) 5,000 unit SQ BID [facility] Last Admin: 06/15/17 10:19 Dose: 5,000 unit Insulin Aspart (Novolog Vial Sliding Scale -) 1 vial SQ ACHS [facility] PRN Reason: Protocol Last Admin: 06/15/17 11:45 Dose: Not Given Morphine Sulfate (Morphine Injection -) 1 mg IVPUSH Q4H PRN PRN Reason: PAIN LEVEL 7 - 10 Last Admin: 06/15/17 01:59 Dose: 1 mg Bboir-1-Txxp Ethyl Esters (Lovaza -) 2 gm PO BID [facility] Last Admin: 06/15/17 10:19 Dose: 2 gm Oxycodone HCl (Roxicodone -) 5 mg PO Q6H PRN PRN Reason: PAIN LEVEL 4 - 6 Last Admin: 06/14/17 19:55 Dose: 5 mg Valsartan (Diovan -) 80 mg PO DAILY [facility] Last Admin: 06/15/17 10:19 Dose: 80 mg - Objective Vital Signs: Vital Signs Temperature 97.6 F 06/15/17 06:00 Pulse Rate 68 06/15/17 06:00 Respiratory Rate 18 06/15/17 06:00 Blood Pressure 154/62 06/15/17 06:00 O2 Sat by Pulse Oximetry (%) 99 06/15/17 09:00 Constitutional: Yes: Well Nourished, No Distress, Calm Cardiovascular: Yes: Regular Rate and Rhythm Respiratory: Yes: Regular Gastrointestinal: Yes: Normal Bowel Sounds, Soft Musculoskeletal: Yes: Other (left foot pain,) Edema: Yes (Lfoot) Peripheral Pulses WNL: No Peripheral Pulses: Left Doralis Pedis: 0, Right Dorsalis Pedis: 0 Neurological: Yes: Alert, Oriented Psychiatric: Yes: Alert, Oriented Labs: CBC, BMP 06/15/17 07:27 06/15/17 07:27 INR, PTT INR 1.04 (0.82-1.09) 06/13/17 06:30 Problem List - Problems (1) HTN (hypertension) Assessment/Plan: -seen by cardiology -controlled Code(s): I10 - ESSENTIAL (PRIMARY) HYPERTENSION (2) Ischemic necrosis of toe Assessment/Plan: -pain management -seen by Vascular and podiatry -For Angio on Friday -po abx Code(s): I96 - GANGRENE, NOT ELSEWHERE CLASSIFIED (3) Peripheral vascular disease of lower extremity with ulceration Code(s): I73.9 - PERIPHERAL VASCULAR DISEASE, UNSPECIFIED; L97.909 - NON-PRS CHRONIC ULC UNSP PRT OF UNSP LOW LEG W UNSP SEVERITY Assessment/Plan see problem list
[2017-06-15] MEDS: oxyCODONE HCL 5 MG TABLET PO PRN ×2 (13:02→21:30)
[2017-06-16] MEDS: MORPHINE SULFATE 10 MG/1 ML *VIAL IVPUSH PRN ×2 (01:50→22:17)
[2017-06-16] MEDS: INSULIN SLIDING SCALE (NOVOLOG) 1 VIAL SQ SCH ×5 (06:22→21:44)
[2017-06-16 07:21] LABS: BASO % 0.9 % (0-2.0); EOS % 2.3 % (0-4.5); HEMATOCRIT 33.8 % (32.4-45.2); HEMOGLOBIN 11.4 GM/dL (10.7-15.3); LYMPH % 34.5 % (8-40); MCH 30.5 pg (25.7-33.7); MCHC 33.7 g/dl (32.0-36.0); MEAN CELL VOLUME 90.7 fl (80-96); MEAN PLT VOLUME 9.9 fl (7.5-11.1); MONO % 10.7 % (3.8-10.2); NEUT % 51.6 % (42.8-82.8); PLATELET COUNT 201 K/MM3 (134-434); RBC 3.73 M/mm3 (3.60-5.2); RDW 14.2 % (11.6-15.6); WHITE BLOOD COUNT 6.4 K/mm3 (4.0-10.0)
[2017-06-16 07:53] LABS: CHLORIDE 101 mmol/L (98-107); POTASSIUM 4.1 mmol/L (3.5-5.1); SODIUM 140 mmol/L (136-145)
[2017-06-16 08:03] LABS: ALBUMIN 3.6 g/dl (3.4-5.0); ALK PHOS 114 U/L (45-117); ANION GAP 10 (8-16); BILIRUBIN,TOTAL 0.6 mg/dL (0.2-1.0); BLOOD UREA NITROGEN 14 mg/dL (7-18); CALCIUM 9.4 mg/dL (8.5-10.1); CO2 29 mmol/L (21-32); CREATININE 0.7 mg/dL (0.55-1.02); GLUCOSE,RANDOM 126 mg/dL (74-106); SGOT/AST 42 U/L (15-37); SGPT/ALT 51 U/L (12-78); TOT PROT 7.3 g/dl (6.4-8.2)
[2017-06-16] MEDS: AMOX TR/POT CLAV 875MG/125MG TABLETS (FP) PO SCH ×2 (08:29→18:33)
[2017-06-16] MEDS: oxyCODONE HCL 5 MG TABLET PO PRN (09:36)
[2017-06-16] MEDS: VALSARTAN 80 MG TABLET (UD) PO SCH (09:38)
[2017-06-16] MEDS: HEPARIN NA (PORCINE) 5,000 UNITS/ML 1ML VIAL SQ SCH ×2 (09:39→21:45)
[2017-06-16] MEDS: OMEGA-3 ACID ETHYL ESTERS (FATTY-ACIDS) 1 GM CAPSULE (FP) PO SCH ×2 (09:41→21:44)
--- NOTE | 2017-06-16 12:31 | PN ---
Progress Note, Physician Chief Complaint: patient is awaiting angiogram today NPO - Current Medication List Current Medications: Active Medications Acetaminophen (Tylenol -) 650 mg PO Q6H PRN PRN Reason: FEVER Amoxicillin/Clavulanate Potassium (Augmentin - 875mg Tablet) 1 tab PO BID@0800, 1730 [facility] Last Admin: 06/16/17 08:29 Dose: Not Given Docusate Sodium (Colace -) 100 mg PO BID PRN PRN Reason: CONSTIPATION Heparin Sodium (Porcine) (Heparin -) 5,000 unit SQ BID [facility] Last Admin: 06/16/17 09:39 Dose: 5,000 unit Insulin Aspart (Novolog Vial Sliding Scale -) 1 vial SQ ACHS [facility] PRN Reason: Protocol Last Admin: 06/16/17 11:25 Dose: Not Given Morphine Sulfate (Morphine Injection -) 1 mg IVPUSH Q4H PRN PRN Reason: PAIN LEVEL 7 - 10 Last Admin: 06/16/17 01:50 Dose: 1 mg Qjoww-2-Uosk Ethyl Esters (Lovaza -) 2 gm PO BID [facility] Last Admin: 06/16/17 09:41 Dose: Not Given Oxycodone HCl (Roxicodone -) 5 mg PO Q6H PRN PRN Reason: PAIN LEVEL 4 - 6 Last Admin: 06/16/17 09:36 Dose: 5 mg Valsartan (Diovan -) 80 mg PO DAILY [facility] Last Admin: 06/16/17 09:38 Dose: 80 mg - Objective Vital Signs: Vital Signs Temperature 98.6 F 06/16/17 09:36 Pulse Rate 76 06/16/17 09:36 Respiratory Rate 18 06/16/17 09:36 Blood Pressure 130/64 06/16/17 09:36 O2 Sat by Pulse Oximetry (%) 96 06/16/17 09:00 Constitutional: Yes: Calm Cardiovascular: Yes: Regular Rate and Rhythm, S1, S2 Respiratory: Yes: CTA Bilaterally Gastrointestinal: Yes: Normal Bowel Sounds, Soft Wound/Incision: Yes: Other (foot swollen and toes macerated) Neurological: Yes: Alert, Oriented Labs: CBC, BMP 06/16/17 07:00 06/16/17 07:00 INR, PTT INR 1.04 (0.82-1.09) 06/13/17 06:30 Problem List - Problems (1) Toe ulcer due to DM Assessment/Plan: augmentin neuropathy start neurontin Code(s): E11.621 - TYPE 2 DIABETES MELLITUS WITH FOOT ULCER; L97.509 - NON- PRESSURE CHRONIC ULCER OTH PRT UNSP FOOT W UNSP SEVERITY (2) Ischemic necrosis of toe Assessment/Plan: vascular evaluation seen plan for angiogram today Code(s): I96 - GANGRENE, NOT ELSEWHERE CLASSIFIED (3) Diabetes Assessment/Plan: bgm sliding scale insulin lipid profile- cannot tolerate statin cause muscle cramps lipid panel noted an lovaza ordered Code(s): E11.9 - TYPE 2 DIABETES MELLITUS WITHOUT COMPLICATIONS Qualifiers: Diabetes mellitus type: type 2 (4) HTN (hypertension) Assessment/Plan: diovan Code(s): I10 - ESSENTIAL (PRIMARY) HYPERTENSION (5) Disorder of electrolytes Assessment/Plan: magnesium and potassium now ok Code(s): E87.8 - OTH DISORDERS OF ELECTROLYTE AND FLUID BALANCE, NEC
[2017-06-16] MEDS ORDERED: LIDOCAINE HCL 1%, 10 MG/ML (20ML VIAL) ONE (13:47)
[2017-06-16] MEDS ORDERED: HEPARIN NA (PORCINE) 5,000 UNITS/ML 1ML VIAL ONE (13:47)
[2017-06-16] MEDS ORDERED: PROMETHAZINE HCL 25 MG/1 ML VIAL IVPUSH PRN ×2 (14:03→16:30)
[2017-06-16] MEDS ORDERED: ONDANSETRON 4 MG/2 ML VIAL IVPUSH PRN ×2 (14:03→16:30)
[2017-06-16] MEDS ORDERED: LACTATED RINGERS SOLUTION 1,000 ML IV SCH ×2 (14:15→16:30)
[2017-06-16] MEDS ORDERED: ceFAZolin SODIUM 1 GM VIAL IVPB ONE (14:30)
[2017-06-16] MEDS ORDERED: LIDOCAINE HCL 1%, 10 MG/ML (20ML VIAL) PNB ONE ×2 (14:41)
[2017-06-16] MEDS ORDERED: HEPARIN NA (PORCINE) 5,000 UNITS/ML 1ML VIAL SQ ONE (16:00)
--- NOTE | 2017-06-16 16:10 | OP ---
Operative Note - Note: Operative Date: 06/16/17 Pre-Operative Diagnosis: left 4th toe gangrene Operation: Aortogram, LLE angiogram, SFA angioplasty with stent placement. Findings: SFA occlusion Post-Operative Diagnosis: Same as Pre-op Surgeon: Edvin Harper Anesthesia: Fractional Estimated Blood Loss (mls): 50 Operative Report Dictated: Yes
[2017-06-16] MEDS ORDERED: oxyCODONE HCL 5 MG TABLET PO PRN (16:30)
[2017-06-16] MEDS ORDERED: PIPERACIL/TAZOB 3.375 GM 3.375 GM/50 ML PREMIX IVPB ONE (16:30)
[2017-06-16] MEDS ORDERED: DOCUSATE SODIUM 100 MG CAPSULE (FP) PO PRN (16:30)
[2017-06-16] MEDS ORDERED: CLOPIDOGREL BISULFATE 75 MG TABLET (FP) ONE (16:40)
[2017-06-16] MEDS: CLOPIDOGREL BISULFATE 75 MG TABLET (FP) PO SCH (16:43)
[2017-06-16] MEDS ORDERED: PIPERACILLIN/TAZOB 3.375 GM 3.375 GM in DEXTROSE 5%-WATER - 50 ML IVPB ONE (16:45)
--- NOTE | 2017-06-16 19:18 | PN ---
Progress Note (short form) - Note Progress Note: Vascular Surgery S/P Left lower ext angiogram, angioplasty with stent. Pt started on plavix. Please dc on plavix. Can follow up in office in one week. Will set up HBO for pt as outpt. please make appt for pt prior to DC -- [phone] Nikunj baldwin DO
[2017-06-16] MEDS: GABAPENTIN 100 MG CAPSULE (FP) PO SCH (21:44)
[2017-06-16] MEDS ORDERED: GABAPENTIN 100 MG CAPSULE (FP) PO SCH (22:00)
[2017-06-17] MEDS: MORPHINE SULFATE 10 MG/1 ML *VIAL IVPUSH PRN ×3 (04:12→20:03)
[2017-06-17] MEDS: INSULIN SLIDING SCALE (NOVOLOG) 1 VIAL SQ SCH ×4 (06:02→21:33)
[2017-06-17 08:43] LABS: BASO % 0.6 % (0-2.0); EOS % 0.5 % (0-4.5); HEMATOCRIT 31.5 % (32.4-45.2); HEMOGLOBIN 10.9 GM/dL (10.7-15.3); LYMPH % 14.1 % (8-40); MCH 31.3 pg (25.7-33.7); MCHC 34.5 g/dl (32.0-36.0); MEAN CELL VOLUME 90.7 fl (80-96); MEAN PLT VOLUME 10.2 fl (7.5-11.1); MONO % 8.8 % (3.8-10.2); PLATELET COUNT 182 K/MM3 (134-434); RBC 3.47 M/mm3 (3.60-5.2)
[2017-06-17 09:08] LABS: BLOOD UREA NITROGEN 13 mg/dL (7-18); GLUCOSE,RANDOM 141 mg/dL (74-106)
[2017-06-17 09:09] LABS: ALBUMIN 3.3 g/dl (3.4-5.0); ANION GAP 9 (8-16); CALCIUM 8.5 mg/dL (8.5-10.1); CHLORIDE 100 mmol/L (98-107); CO2 26 mmol/L (21-32); POTASSIUM 3.9 mmol/L (3.5-5.1); SGPT/ALT 54 U/L (12-78); SODIUM 135 mmol/L (136-145)
[2017-06-17 09:11] LABS: ALK PHOS 108 U/L (45-117); BILIRUBIN,TOTAL 0.8 mg/dL (0.2-1.0); CREATININE 0.7 mg/dL (0.55-1.02); SGOT/AST 39 U/L (15-37); TOT PROT 6.6 g/dl (6.4-8.2)
[2017-06-17] MEDS: GABAPENTIN 100 MG CAPSULE (FP) PO SCH ×2 (09:39→21:33)
[2017-06-17] MEDS: CLOPIDOGREL BISULFATE 75 MG TABLET (FP) PO SCH (09:39)
[2017-06-17] MEDS: AMOX TR/POT CLAV 875MG/125MG TABLETS (FP) PO SCH ×2 (09:39→17:33)
[2017-06-17] MEDS: VALSARTAN 80 MG TABLET (UD) PO SCH (09:39)
[2017-06-17] MEDS: OMEGA-3 ACID ETHYL ESTERS (FATTY-ACIDS) 1 GM CAPSULE (FP) PO SCH ×2 (09:42→21:33)
[2017-06-17] MEDS ORDERED: PT OWN MED DRAWER 7, Y5N ONE (09:43)
[2017-06-17] MEDS: HEPARIN NA (PORCINE) 5,000 UNITS/ML 1ML VIAL SQ SCH ×2 (09:44→21:33)
--- NOTE | 2017-06-17 13:26 | PN ---
Progress Note (short form) - Note Progress Note: Podiatry: Seen/evaluated at bedside, NAD. Pain appropriately controlled, denies F/V/N/C/ SOB/CP. Afebrile, VSS. S/p LLE angioplasty/stent with Dr. Harper. LIBBY: L foot: dry distal tuft gangrene with no periwound erythema, no ascending cellulitis, no drainage, no active signs of infection. Moderate tenderness to palpation. WBC: 8.0 ESR: 36 Imp: 66 year old F with L 4th digit dry gangrene 1. Discussed treatment options with patient at length and she does not want amputation at this time. Will attempt to treat with local wound care, HBO therapy as outpatient. If condition worsens, will need partial amputation. Okay for discharge from my standpoint and we will watch her closely in wound healing center. Gustabo Mejia DPM
--- NOTE | 2017-06-17 13:35 | PN ---
Progress Note (short form) - Note Progress Note: POD #1 - s/p angiogram/angioplasty/stent placement of left leg under MAC. VSS. Pt. doing well, walking about room without difficulty. No complaints. No apparent anesthetic complications noted. Continue current care.
--- NOTE | 2017-06-17 15:06 | PN ---
Progress Note, Physician Chief Complaint: s/p angiogram now with temp 101 today tylenol cultures - Current Medication List Current Medications: Active Medications Acetaminophen (Tylenol -) 650 mg PO Q6H PRN PRN Reason: FEVER Amoxicillin/Clavulanate Potassium (Augmentin - 875mg Tablet) 1 tab PO BID@0800, 1730 [facility] Last Admin: 06/17/17 09:39 Dose: 1 tab Clopidogrel Bisulfate (Plavix -) 75 mg PO DAILY [facility] Last Admin: 06/17/17 09:39 Dose: 75 mg Docusate Sodium (Colace -) 100 mg PO Q12H PRN PRN Reason: CONSTIPATION Fentanyl (Sublimaze Injection -) 50 mcg IVPUSH Q5M PRN PRN Reason: PAIN-PACU ORDER X 4 DOSES ONLY Gabapentin (Neurontin -) 100 mg PO BID [facility] Last Admin: 06/17/17 09:39 Dose: 100 mg Heparin Sodium (Porcine) (Heparin -) 5,000 unit SQ BID [facility] Last Admin: 06/17/17 09:44 Dose: 5,000 unit Insulin Aspart (Novolog Vial Sliding Scale -) 1 vial SQ ACHS [facility] PRN Reason: Protocol Last Admin: 06/17/17 12:21 Dose: Not Given Morphine Sulfate (Morphine Injection -) 1 mg IVPUSH Q4H PRN PRN Reason: PAIN LEVEL 7 - 10 Last Admin: 06/17/17 14:15 Dose: 1 mg Javfl-9-Twtl Ethyl Esters (Lovaza -) 2 gm PO BID [facility] Last Admin: 06/17/17 09:42 Dose: 2 gm Ondansetron HCl (Zofran Injection) 4 mg IVPUSH Q6H PRN PRN Reason: NAUSEA AND/OR VOMITING Oxycodone HCl (Roxicodone -) 5 mg PO Q6H PRN PRN Reason: PAIN LEVEL 4 - 6 Promethazine HCl (Phenergan Injection -) 12.5 mg IVPUSH Q6H PRN PRN Reason: NAUSEA-FOR RESCUE AFTER 15 MIN Valsartan (Diovan -) 80 mg PO DAILY [facility] Last Admin: 06/17/17 09:39 Dose: 80 mg - Objective Vital Signs: Vital Signs Temperature 98.3 F 06/17/17 12:39 Pulse Rate 78 06/17/17 12:39 Respiratory Rate 19 06/17/17 12:39 Blood Pressure 143/66 06/17/17 12:39 O2 Sat by Pulse Oximetry (%) 96 06/17/17 09:00 Constitutional: Yes: Calm Cardiovascular: Yes: Regular Rate and Rhythm, S1, S2 Respiratory: Yes: CTA Bilaterally Gastrointestinal: Yes: Normal Bowel Sounds, Soft Extremities: Yes: Other (left foot edema decreased macerated skin btw two toes) Neurological: Yes: Alert, Oriented Labs: CBC, BMP 06/17/17 08:05 06/17/17 08:05 INR, PTT INR 1.04 (0.82-1.09) 06/13/17 06:30 Problem List - Problems (1) Fever Assessment/Plan: augmentin cultures ordered ID Follow up tylenol Code(s): R50.9 - FEVER, UNSPECIFIED (2) Ischemic necrosis of toe Assessment/Plan: s/p angiogram, s/p angioplasty Code(s): I96 - GANGRENE, NOT ELSEWHERE CLASSIFIED (3) Toe ulcer due to DM Assessment/Plan: augmentin neuropathy start neurontin Code(s): E11.621 - TYPE 2 DIABETES MELLITUS WITH FOOT ULCER; L97.509 - NON- PRESSURE CHRONIC ULCER OTH PRT UNSP FOOT W UNSP SEVERITY (4) Diabetes Assessment/Plan: bgm sliding scale insulin lipid profile- cannot tolerate statin cause muscle cramps lipid panel noted an lovaza ordered Code(s): E11.9 - TYPE 2 DIABETES MELLITUS WITHOUT COMPLICATIONS Qualifiers: Diabetes mellitus type: type 2 (5) HTN (hypertension) Assessment/Plan: diovan Code(s): I10 - ESSENTIAL (PRIMARY) HYPERTENSION (6) Disorder of electrolytes Assessment/Plan: magnesium and potassium now ok Code(s): E87.8 - OTH DISORDERS OF ELECTROLYTE AND FLUID BALANCE, NEC
--- NOTE | 2017-06-17 15:37 | OP ---
DATE OF OPERATION: 06/16/2017 PREOPERATIVE DIAGNOSIS: Left fourth toe gangrene. POSTOPERATIVE DIAGNOSIS: Left fourth toe gangrene. PROCEDURE: Aortogram, left lower extremity angiogram superficial femoral artery angioplasty with stent placement. SURGEON: Edvin Zheng D.O. ANESTHESIA: Fractional. BLOOD LOSS: 50 mL. INDICATION: The patient is a 66-year?old female who is a current smoker that comes in with bilateral lower extremity claudication but on the left foot she has left 4th toe gangrene. She got cleared by cardiology for the procedure. Patient was consented for the procedure understanding all risks, benefits, and alternatives and then taken to the operating room. DESCRIPTION OF PROCEDURE: Once in the operating room, she was laid on the operating table in a supine manner, and the area of the right and left groin are prepped and draped in a sterile surgical manner. We then went ahead and injected 10 mL of lidocaine 1% over the right common femoral artery. We then took a Micropuncture needle and punctured the right common femoral artery. A Micropuncture wire was inserted, and a traditional 6-Welsh sheath was inserted. We then placed 0.035 floppy guidewire up into the aorta followed by an Omniflush catheter. We then shot an aortogram by hand injection showing that the aorta and the iliac arteries were without any disease. We then placed our 0.035 floppy guidewire up and over to the left common femoral artery and our Omni sheath followed. We then shot an angiogram of the left lower extremity showing that the common femoral artery, the profunda, and the SFA were patent, but the mid SFA was occluded all the way down to above the knee. Patient had 1 vessel runoff which was peroneal into the foot. At this point, we placed 0.035 stiff guidewire into the SFA, removed our Omniflush catheter, and placed a 6 x 45 crossover sheath. 5000 units of IV heparin were administered to the patient. We then used our catheter, we were able to selectively go and cross our occlusion and placed a wire to the peroneal artery. We then went ahead and used our 5 x 200 balloon and performed angioplasty of the entire SFA that was occluded. We then went ahead and shot an angiogram showing that the SFA was dissected in multiple areas. We then used a 5 x 200 LifeStent and a 5 x 100 stent and then performed angioplasty of the stent. Completion angiogram now showed that the SFA was patent, and there was good brisk runoff into the foot via the peroneal artery . We brought our sheath up and over and Starclose device was deployed in the right common femoral artery. Pressure was held for 5 minutes until there was no more bleeding. The area was wet and dried, and Dermabond was placed. Patient tolerated the procedure with no complications. Patient was transferred to PACU in stable condition. EDVIN ZHENG DO [id number]
[2017-06-17] MEDS: ACETAMINOPHEN 325 MG TABLET (FP) PO PRN (21:32)
[2017-06-17 22:55] LABS: URINE APPEARANCE CLEAR; URINE BILIRUBIN NEGATIVE (NEGATIVE); URINE BLOOD NEGATIVE (NEGATIVE); URINE COLOR LTYELLOW; URINE GLUCOSE (UA) NEGATIVE (NEGATIVE); URINE KETONE TRACE (NEGATIVE); URINE LEUK ESTERASE TRACE (NEGATIVE); URINE NITRITE NEGATIVE (NEGATIVE); URINE PROTEIN NEGATIVE (NEGATIVE); URINE UROBILINOGEN NEGATIVE mg/dL (0.2-1.0)
[2017-06-17 23:01] LABS: EPI CELLS RARE /HPF (FEW); URINE BACTERIA RARE /hpf (NONE SEEN)
[2017-06-18] MEDS: INSULIN SLIDING SCALE (NOVOLOG) 1 VIAL SQ SCH ×4 (06:18→21:19)
[2017-06-18] MEDS: AMOX TR/POT CLAV 875MG/125MG TABLETS (FP) PO SCH ×2 (08:27→17:32)
[2017-06-18 08:36] LABS: CHLORIDE 103 mmol/L (98-107); POTASSIUM 4.1 mmol/L (3.5-5.1); SODIUM 138 mmol/L (136-145)
[2017-06-18 08:45] LABS: ALBUMIN 2.9 g/dl (3.4-5.0); ALK PHOS 97 U/L (45-117); ANION GAP 9 (8-16); BILIRUBIN,TOTAL 0.7 mg/dL (0.2-1.0); BLOOD UREA NITROGEN 10 mg/dL (7-18); CALCIUM 8.4 mg/dL (8.5-10.1); CO2 26 mmol/L (21-32); CREATININE 0.6 mg/dL (0.55-1.02); GLUCOSE,RANDOM 136 mg/dL (74-106); MAGNESIUM 1.9 mg/dL (1.8-2.4); SGOT/AST 28 U/L (15-37); SGPT/ALT 43 U/L (12-78)
[2017-06-18] MEDS: GABAPENTIN 100 MG CAPSULE (FP) PO SCH ×2 (09:34→21:18)
[2017-06-18] MEDS: VALSARTAN 80 MG TABLET (UD) PO SCH (09:34)
[2017-06-18] MEDS: CLOPIDOGREL BISULFATE 75 MG TABLET (FP) PO SCH (09:34)
[2017-06-18] MEDS: OMEGA-3 ACID ETHYL ESTERS (FATTY-ACIDS) 1 GM CAPSULE (FP) PO SCH ×2 (09:34→21:19)
[2017-06-18] MEDS: ACETAMINOPHEN 325 MG TABLET (FP) PO PRN ×2 (09:34→21:22)
[2017-06-18] MEDS: HEPARIN NA (PORCINE) 5,000 UNITS/ML 1ML VIAL SQ SCH ×2 (09:35→21:19)
--- NOTE | 2017-06-18 09:53 | PN ---
Progress Note, Physician Chief Complaint: ASLEEP COMFORTBLE NOTES AND EVENTS REVIEWED - Current Medication List Current Medications: Active Medications Acetaminophen (Tylenol -) 650 mg PO Q6H PRN PRN Reason: FEVER Last Admin: 06/18/17 09:34 Dose: 650 mg Amoxicillin/Clavulanate Potassium (Augmentin - 875mg Tablet) 1 tab PO BID@0800, 1730 [facility] Last Admin: 06/18/17 08:27 Dose: 1 tab Clopidogrel Bisulfate (Plavix -) 75 mg PO DAILY [facility] Last Admin: 06/18/17 09:34 Dose: 75 mg Docusate Sodium (Colace -) 100 mg PO Q12H PRN PRN Reason: CONSTIPATION Fentanyl (Sublimaze Injection -) 50 mcg IVPUSH Q5M PRN PRN Reason: PAIN-PACU ORDER X 4 DOSES ONLY Gabapentin (Neurontin -) 100 mg PO BID [facility] Last Admin: 06/18/17 09:34 Dose: 100 mg Heparin Sodium (Porcine) (Heparin -) 5,000 unit SQ BID [facility] Last Admin: 06/18/17 09:35 Dose: 5,000 unit Insulin Aspart (Novolog Vial Sliding Scale -) 1 vial SQ ACHS [facility] PRN Reason: Protocol Last Admin: 06/18/17 06:18 Dose: Not Given Morphine Sulfate (Morphine Injection -) 1 mg IVPUSH Q4H PRN PRN Reason: PAIN LEVEL 7 - 10 Last Admin: 06/17/17 20:03 Dose: 1 mg Qcwgm-2-Epui Ethyl Esters (Lovaza -) 2 gm PO BID [facility] Last Admin: 06/18/17 09:34 Dose: 2 gm Ondansetron HCl (Zofran Injection) 4 mg IVPUSH Q6H PRN PRN Reason: NAUSEA AND/OR VOMITING Oxycodone HCl (Roxicodone -) 5 mg PO Q6H PRN PRN Reason: PAIN LEVEL 4 - 6 Promethazine HCl (Phenergan Injection -) 12.5 mg IVPUSH Q6H PRN PRN Reason: NAUSEA-FOR RESCUE AFTER 15 MIN Valsartan (Diovan -) 80 mg PO DAILY [facility] Last Admin: 06/18/17 09:34 Dose: 80 mg - Objective Vital Signs: Vital Signs Temperature 99.0 F 06/18/17 06:00 Pulse Rate 69 03/07/18 06:00 Respiratory Rate 18 06/18/17 06:00 Blood Pressure 134/58 06/18/17 06:00 O2 Sat by Pulse Oximetry (%) 99 06/17/17 21:00 Constitutional: Yes: No Distress Eyes: Yes: WNL HENT: Yes: WNL Neck: Yes: WNL Cardiovascular: Yes: WNL Respiratory: Yes: WNL Gastrointestinal: Yes: WNL Genitourinary: Yes: WNL Musculoskeletal: Yes: Other Extremities: Yes: Erythema, Other Edema: Yes Edema: LLE: 1+ Integumentary: Yes: Erythema, Pressure Ulcer, Venous Stasis Changes Wound/Incision: Yes: Dressing Dry and Intact Neurological: Yes: Numbness, Paresthesia, Pre-Existing Deficit ...Motor Strength: LLE Psychiatric: Yes: WNL Labs: CBC, BMP 06/17/17 08:05 06/18/17 07:30 INR, PTT INR 1.04 (0.82-1.09) 06/13/17 06:30 Problem List - Problems (1) Diabetes Code(s): E11.9 - TYPE 2 DIABETES MELLITUS WITHOUT COMPLICATIONS Qualifiers: Diabetes mellitus type: type 2 Diabetes mellitus complication detail: with foot ulcer (2) Fever Code(s): R50.9 - FEVER, UNSPECIFIED (3) Ischemic necrosis of toe Code(s): I96 - GANGRENE, NOT ELSEWHERE CLASSIFIED (4) Peripheral vascular disease of lower extremity with ulceration Code(s): I73.9 - PERIPHERAL VASCULAR DISEASE, UNSPECIFIED; L97.909 - NON-PRS CHRONIC ULC UNSP PRT OF UNSP LOW LEG W UNSP SEVERITY (5) Toe ulcer due to DM Code(s): E11.621 - TYPE 2 DIABETES MELLITUS WITH FOOT ULCER; L97.509 - NON- PRESSURE CHRONIC ULCER OTH PRT UNSP FOOT W UNSP SEVERITY Assessment/Plan ON PO AUGMENTIN ID CONSULT FOR FEVERS PAIN CONTROL PATIENT REFUSING AMPUTATION WHICH WAS RECOMMENDED BY PODIATRY DR FISCHER. TREATING WITH WOUND CARE AND OUTPATIENT HBO THERAPY
--- NOTE | 2017-06-18 12:56 | PN ---
Progress Note, Physician History of Present Illness: Recurrent fever past 24-48hr C/O sneezing, foot pain Cultures pending - Current Medication List Current Medications: Active Medications Acetaminophen (Tylenol -) 650 mg PO Q6H PRN PRN Reason: FEVER Last Admin: 06/18/17 09:34 Dose: 650 mg Amoxicillin/Clavulanate Potassium (Augmentin - 875mg Tablet) 1 tab PO BID@0800, 1730 [facility] Last Admin: 06/18/17 08:27 Dose: 1 tab Clopidogrel Bisulfate (Plavix -) 75 mg PO DAILY [facility] Last Admin: 06/18/17 09:34 Dose: 75 mg Docusate Sodium (Colace -) 100 mg PO Q12H PRN PRN Reason: CONSTIPATION Fentanyl (Sublimaze Injection -) 50 mcg IVPUSH Q5M PRN PRN Reason: PAIN-PACU ORDER X 4 DOSES ONLY Gabapentin (Neurontin -) 100 mg PO BID [facility] Last Admin: 06/18/17 09:34 Dose: 100 mg Heparin Sodium (Porcine) (Heparin -) 5,000 unit SQ BID [facility] Last Admin: 06/18/17 09:35 Dose: 5,000 unit Insulin Aspart (Novolog Vial Sliding Scale -) 1 vial SQ ACHS [facility] PRN Reason: Protocol Last Admin: 06/18/17 11:28 Dose: Not Given Morphine Sulfate (Morphine Injection -) 1 mg IVPUSH Q4H PRN PRN Reason: PAIN LEVEL 7 - 10 Last Admin: 06/17/17 20:03 Dose: 1 mg Gvmhc-9-Tvzt Ethyl Esters (Lovaza -) 2 gm PO BID [facility] Last Admin: 06/18/17 09:34 Dose: 2 gm Ondansetron HCl (Zofran Injection) 4 mg IVPUSH Q6H PRN PRN Reason: NAUSEA AND/OR VOMITING Oxycodone HCl (Roxicodone -) 5 mg PO Q6H PRN PRN Reason: PAIN LEVEL 4 - 6 Promethazine HCl (Phenergan Injection -) 12.5 mg IVPUSH Q6H PRN PRN Reason: NAUSEA-FOR RESCUE AFTER 15 MIN Valsartan (Diovan -) 80 mg PO DAILY [facility] Last Admin: 06/18/17 09:34 Dose: 80 mg - Objective Vital Signs: Vital Signs Temperature 100.5 F H 06/18/17 08:00 Pulse Rate 85 03/07/18 08:00 Respiratory Rate 18 06/18/17 08:00 Blood Pressure 128/60 06/18/17 08:00 O2 Sat by Pulse Oximetry (%) 97 06/18/17 09:00 Constitutional: Yes: No Distress Eyes: Yes: Conjunctiva Clear Cardiovascular: Yes: Regular Rate and Rhythm, S1, S2 Respiratory: Yes: CTA Bilaterally Gastrointestinal: Yes: Normal Bowel Sounds, Soft. No: Tenderness Extremities: Yes: Other (hyperemia L foot, dry necrotic toe) Labs: CBC, BMP 06/17/17 08:05 06/18/17 07:30 INR, PTT INR 1.04 (0.82-1.09) 06/13/17 06:30 Assessment/Plan Fever ? source S/P angio Cultures pending Empiric zosyn/ vancomycin
[2017-06-18] MEDS ORDERED: PT OWN MED DRAWER 7, Y5N ONE ×4 (13:07→20:36)
[2017-06-18] MEDS: PIPERACILLIN/TAZOB 3.375 GM 3.375 GM in DEXTROSE 5%-WATER - 50 ML IVPB SCH ×2 (15:01→17:32)
[2017-06-18] MEDS: VANCOMYCIN 1,000 MG in DEXTROSE 5%-WATER - 250 ML IVPB SCH (15:35)
[2017-06-18] MEDS: MORPHINE SULFATE 10 MG/1 ML *VIAL IVPUSH PRN (22:09)
[2017-06-19] MEDS: PIPERACILLIN/TAZOB 3.375 GM 3.375 GM in DEXTROSE 5%-WATER - 50 ML IVPB SCH ×3 (01:12→18:39)
[2017-06-19] MEDS: VANCOMYCIN 1,000 MG in DEXTROSE 5%-WATER - 250 ML IVPB SCH ×2 (01:12→14:12)
[2017-06-19] MEDS: MORPHINE SULFATE 10 MG/1 ML *VIAL IVPUSH PRN (04:51)
[2017-06-19] MEDS: INSULIN SLIDING SCALE (NOVOLOG) 1 VIAL SQ SCH ×4 (06:13→22:22)
[2017-06-19] MEDS ORDERED: PT OWN MED DRAWER 7, Y5N ONE ×3 (09:34→19:30)
--- NOTE | 2017-06-19 09:34 | PN ---
Progress Note (short form) - Note Progress Note: VAscular Surgery Pt seen and examiend. S/P right lower ext angiogram, angioplasty with sfa stent placement. Doing well. foot swelling is normal after revascularization. Palpable PT pulse. Read podiatry note. Agree with HBO as out pt. Pt had 101 fever. Cultures all pending. will order cxy. Edvin Harper DO
[2017-06-19] MEDS: VALSARTAN 80 MG TABLET (UD) PO SCH (09:35)
[2017-06-19] MEDS: HEPARIN NA (PORCINE) 5,000 UNITS/ML 1ML VIAL SQ SCH ×2 (09:35→22:11)
[2017-06-19] MEDS: AMOX TR/POT CLAV 875MG/125MG TABLETS (FP) PO SCH ×2 (09:35→17:27)
[2017-06-19] MEDS: OMEGA-3 ACID ETHYL ESTERS (FATTY-ACIDS) 1 GM CAPSULE (FP) PO SCH ×2 (09:36→22:11)
[2017-06-19] MEDS: GABAPENTIN 100 MG CAPSULE (FP) PO SCH ×2 (09:36→22:11)
[2017-06-19] MEDS: CLOPIDOGREL BISULFATE 75 MG TABLET (FP) PO SCH (09:37)
--- NOTE | 2017-06-19 11:53 | DS ---
Physical Examination Vital Signs: Vital Signs Temperature 98.4 F 06/19/17 06:00 Pulse Rate 70 06/19/17 06:00 Respiratory Rate 20 06/19/17 06:00 Blood Pressure 117/52 06/19/17 06:00 O2 Sat by Pulse Oximetry (%) 97 06/18/17 09:00 wbc is normal no fever today cultures negative Constitutional: Yes: Calm Neck: Yes: Trachea Midline Cardiovascular: Yes: Regular Rate and Rhythm, S1, S2 Respiratory: Yes: CTA Bilaterally Gastrointestinal: Yes: Normal Bowel Sounds, Soft Extremities: Yes: Other (foot swelling noted ,toe dusky discoloration) Neurological: Yes: Alert, Oriented Labs: CBC, BMP 06/17/17 08:05 06/18/17 07:30 Discharge Summary Reason For Visit: ISCHEMIC NECROSIS OF TOE Current Active Problems Diabetes (Acute) Disorder of electrolytes (Acute) Fever (Acute) HTN (hypertension) (Acute) Ischemic necrosis of toe (Acute) Peripheral vascular disease of lower extremity with ulceration (Acute) Toe ulcer due to DM (Acute) Hospital Course: Primary Care Physician PCP: Jolie Sun I - Admission Chief Complaint: admitted for toe swelling History of Present Illness: The patient is a 66 year old female with a history of HTN, HLD, DM, PVD, who presents for evaluation and admission for a left 4th ischemic toe. The patient reports a wound to her left 4th toe over the past month for which she has been followed by a podietrist. The patient reports continued symptoms despite treatment with antifungals, antibiotics, and nail removal. The patient was evaluated by Dr. Harper and there was concern for PVD that prevented wound healing as well as ischemic toe and sent the patient for admission. She reports some burning pain to the toe, but otherwise denies other symptoms. The patient denies fevers, chills, SOB, chest pain, nausea, vomiting, abdominal pain , or changes with urination or bowel movements. History Source: Patient - Past Medical History Cardiovascular: Yes: AFIB, HTN, Hyperlipdemia Endocrine: Yes: Diabetes Insipidus - Past Surgical History Past Surgical History: Yes: None - Smoking History Smoking history: Former smoker Have you smoked in the past 12 months: Yes If you are a former smoker, when did you quit?: 1 MONTH AGO s/p angio gram and angioplasty, then spike fever and cultures done empiric antibiotic, cough flu swab ash need outpatient HBO and wound care Follow up. recommend amputation of toe by podiatry but doesnot want it at this time on oral augmentin zosyn and vancomycin Condition: Stable - Instructions Referrals: Bernard Valladares MD [Primary Care Provider] - Disposition: V[facility]/HOME HEALTH CARE - Home Medications Comprehensive Discharge Medication List: Ambulatory Orders Aspirin [ASA -] 81 mg PO HS 06/12/17 Losartan/Hydrochlorothiazide [Hyzaar 100-25 Tablet] 1 each PO DAILY 06/12/17 Metformin HCl 1,000 mg PO BID 06/12/17 Silver Sulfadiazine 1% Top Cr [Silvadene -] 1 applic TP DAILY 06/12/17 Toprol Xl 100 mg PO DAILY 06/12/17
--- NOTE | 2017-06-19 13:44 | PN ---
Progress Note, Physician History of Present Illness: Temps down today No complaints of foot pain at rest C/O Sneezing No c/o sinus congestion No rigors WBC WNL Cultures pending - Current Medication List Current Medications: Active Medications Acetaminophen (Tylenol -) 650 mg PO Q6H PRN PRN Reason: FEVER Last Admin: 06/18/17 21:22 Dose: 650 mg Amoxicillin/Clavulanate Potassium (Augmentin - 875mg Tablet) 1 tab PO BID@0800, 1730 [facility] Last Admin: 06/19/17 09:35 Dose: 1 tab Clopidogrel Bisulfate (Plavix -) 75 mg PO DAILY [facility] Last Admin: 06/19/17 09:37 Dose: 75 mg Docusate Sodium (Colace -) 100 mg PO Q12H PRN PRN Reason: CONSTIPATION Fentanyl (Sublimaze Injection -) 50 mcg IVPUSH Q5M PRN PRN Reason: PAIN-PACU ORDER X 4 DOSES ONLY Gabapentin (Neurontin -) 100 mg PO BID [facility] Last Admin: 06/19/17 09:36 Dose: 100 mg Heparin Sodium (Porcine) (Heparin -) 5,000 unit SQ BID [facility] Last Admin: 06/19/17 09:35 Dose: 5,000 unit Vancomycin HCl 1,000 mg/ (Dextrose) 250 mls @ 200 mls/hr IVPB BID@0100,1300 [facility] Last Admin: 06/19/17 01:12 Dose: 200 mls/hr Piperacillin Sod/Tazobactam (Sod 3.375 gm/ Dextrose) 50 mls @ 100 mls/hr IVPB Q8H-IV [facility] PRN Reason: Protocol Last Admin: 06/19/17 12:20 Dose: 100 mls/hr Insulin Aspart (Novolog Vial Sliding Scale -) 1 vial SQ ACHS [facility] PRN Reason: Protocol Last Admin: 06/19/17 12:07 Dose: Not Given Morphine Sulfate (Morphine Injection -) 1 mg IVPUSH Q4H PRN PRN Reason: PAIN LEVEL 7 - 10 Last Admin: 06/19/17 04:51 Dose: 1 mg [id number] Ethyl Esters (Lovaza -) 2 gm PO BID [facility] Last Admin: 06/19/17 09:36 Dose: 2 gm Ondansetron HCl (Zofran Injection) 4 mg IVPUSH Q6H PRN PRN Reason: NAUSEA AND/OR VOMITING Oxycodone HCl (Roxicodone -) 5 mg PO Q6H PRN PRN Reason: PAIN LEVEL 4 - 6 Last Admin: 06/18/17 15:00 Dose: 5 mg Promethazine HCl (Phenergan Injection -) 12.5 mg IVPUSH Q6H PRN PRN Reason: NAUSEA-FOR RESCUE AFTER 15 MIN Valsartan (Diovan -) 80 mg PO DAILY [facility] Last Admin: 06/19/17 09:35 Dose: 80 mg - Objective Vital Signs: Vital Signs Temperature 98.4 F 06/19/17 06:00 Pulse Rate 70 06/19/17 06:00 Respiratory Rate 20 06/19/17 06:00 Blood Pressure 117/52 06/19/17 06:00 O2 Sat by Pulse Oximetry (%) 97 06/18/17 09:00 Constitutional: Yes: No Distress Eyes: Yes: Conjunctiva Clear Cardiovascular: Yes: Regular Rate and Rhythm, S1, S2 Respiratory: Yes: CTA Bilaterally Gastrointestinal: Yes: Normal Bowel Sounds, Soft. No: Tenderness Extremities: Yes: Other (L foot warm. + Dry necrosis distal toe) Labs: CBC, BMP 06/17/17 08:05 06/18/17 07:30 INR, PTT INR 1.04 (0.82-1.09) 06/13/17 06:30 Assessment/Plan Fever ? source S/P angio Cultures pending Obtain influenza screen Empiric zosyn/ vancomycin
[2017-06-19] MEDS ORDERED: INSULIN (NOVOLOG) ASPART 100 UNITS/ML 10ML VIAL ONE (19:30)
[2017-06-20] MEDS: VANCOMYCIN 1,000 MG in DEXTROSE 5%-WATER - 250 ML IVPB SCH ×2 (01:06→15:25)
[2017-06-20] MEDS: PIPERACILLIN/TAZOB 3.375 GM 3.375 GM in DEXTROSE 5%-WATER - 50 ML IVPB SCH ×3 (02:49→10:34)
[2017-06-20] MEDS: INSULIN SLIDING SCALE (NOVOLOG) 1 VIAL SQ SCH ×2 (06:56→12:02)
[2017-06-20] MEDS ORDERED: PT OWN MED DRAWER 7, Y5N ONE ×2 (09:05→10:41)
[2017-06-20] MEDS: AMOX TR/POT CLAV 875MG/125MG TABLETS (FP) PO SCH (09:10)
[2017-06-20] MEDS: GABAPENTIN 100 MG CAPSULE (FP) PO SCH (09:10)
[2017-06-20] MEDS: CLOPIDOGREL BISULFATE 75 MG TABLET (FP) PO SCH (09:10)
[2017-06-20] MEDS: VALSARTAN 80 MG TABLET (UD) PO SCH (09:10)
[2017-06-20] MEDS: OMEGA-3 ACID ETHYL ESTERS (FATTY-ACIDS) 1 GM CAPSULE (FP) PO SCH (09:10)
[2017-06-20] MEDS: HEPARIN NA (PORCINE) 5,000 UNITS/ML 1ML VIAL SQ SCH (10:34)
[2017-06-20 11:08] VITALS: BP 111/53; PULSE 80; TEMP 98.2
[2017-06-20] MEDS ORDERED: INSULIN (NOVOLOG) ASPART 100 UNITS/ML 10ML VIAL ONE ×2 (11:38→12:23)
--- NOTE | 2017-06-20 13:07 | PN ---
Progress Note, Physician Chief Complaint: patient wants to go home convinced the patient to take iv antibiotic then can go home low grade temp 100.1 today normal WBC - Current Medication List Current Medications: Active Medications Acetaminophen (Tylenol -) 650 mg PO Q6H PRN PRN Reason: FEVER Last Admin: 06/18/17 21:22 Dose: 650 mg Amoxicillin/Clavulanate Potassium (Augmentin - 875mg Tablet) 1 tab PO BID@0800, 1730 [facility] Last Admin: 06/20/17 09:10 Dose: 1 tab Clopidogrel Bisulfate (Plavix -) 75 mg PO DAILY [facility] Last Admin: 06/20/17 09:10 Dose: 75 mg Docusate Sodium (Colace -) 100 mg PO Q12H PRN PRN Reason: CONSTIPATION Fentanyl (Sublimaze Injection -) 50 mcg IVPUSH Q5M PRN PRN Reason: PAIN-PACU ORDER X 4 DOSES ONLY Gabapentin (Neurontin -) 100 mg PO BID [facility] Last Admin: 06/20/17 09:10 Dose: 100 mg Heparin Sodium (Porcine) (Heparin -) 5,000 unit SQ BID [facility] Last Admin: 06/20/17 10:34 Dose: Not Given Vancomycin HCl 1,000 mg/ (Dextrose) 250 mls @ 200 mls/hr IVPB BID@0100,1300 [facility] Last Admin: 06/20/17 01:06 Dose: 200 mls/hr Piperacillin Sod/Tazobactam (Sod 3.375 gm/ Dextrose) 50 mls @ 100 mls/hr IVPB Q8H-IV [facility] PRN Reason: Protocol Last Admin: 06/20/17 10:34 Dose: Not Given Insulin Aspart (Novolog Vial Sliding Scale -) 1 vial SQ ACHS [facility] PRN Reason: Protocol Last Admin: 06/20/17 12:02 Dose: Not Given Yfhcv-1-Dilf Ethyl Esters (Lovaza -) 2 gm PO BID [facility] Last Admin: 06/20/17 09:10 Dose: 2 gm Ondansetron HCl (Zofran Injection) 4 mg IVPUSH Q6H PRN PRN Reason: NAUSEA AND/OR VOMITING Oxycodone HCl (Roxicodone -) 5 mg PO Q6H PRN PRN Reason: PAIN LEVEL 4 - 6 Last Admin: 06/18/17 15:00 Dose: 5 mg Promethazine HCl (Phenergan Injection -) 12.5 mg IVPUSH Q6H PRN PRN Reason: NAUSEA-FOR RESCUE AFTER 15 MIN Valsartan (Diovan -) 80 mg PO DAILY [facility] Last Admin: 06/20/17 09:10 Dose: 80 mg - Objective Vital Signs: Vital Signs Temperature 98.2 F 06/20/17 11:07 Pulse Rate 80 06/20/17 11:07 Respiratory Rate 18 06/20/17 11:07 Blood Pressure 111/53 06/20/17 11:07 O2 Sat by Pulse Oximetry (%) 99 06/19/17 09:00 Constitutional: Yes: Calm Cardiovascular: Yes: Regular Rate and Rhythm, S1, S2 Respiratory: Yes: CTA Bilaterally Gastrointestinal: Yes: Normal Bowel Sounds, Soft Extremities: Yes: Other (left foot decreased swelling toe dusky colored dry gangrene at the tip) Labs: CBC, BMP 06/17/17 08:05 06/18/17 07:30 INR, PTT INR 1.04 (0.82-1.09) 06/13/17 06:30 Problem List - Problems (1) Fever Assessment/Plan: augmentin- will dc home on it to get iv abx right now then go home cultures ordered-negative tylenol- low grade temp 100.1 today Code(s): R50.9 - FEVER, UNSPECIFIED (2) Ischemic necrosis of toe Assessment/Plan: s/p angiogram, s/p angioplasty plavix Code(s): I96 - GANGRENE, NOT ELSEWHERE CLASSIFIED (3) Toe ulcer due to DM Assessment/Plan: augmentin neuropathy start neurontin Code(s): E11.621 - TYPE 2 DIABETES MELLITUS WITH FOOT ULCER; L97.509 - NON- PRESSURE CHRONIC ULCER OTH PRT UNSP FOOT W UNSP SEVERITY (4) Diabetes Assessment/Plan: bgm sliding scale insulin lipid profile- cannot tolerate statin cause muscle cramps lipid panel noted an lovaza ordered Code(s): E11.9 - TYPE 2 DIABETES MELLITUS WITHOUT COMPLICATIONS Qualifiers: Diabetes mellitus type: type 2 Diabetes mellitus complication detail: with foot ulcer (5) HTN (hypertension) Assessment/Plan: diovan Code(s): I10 - ESSENTIAL (PRIMARY) HYPERTENSION (6) Disorder of electrolytes Assessment/Plan: magnesium and potassium now ok Code(s): E87.8 - OTH DISORDERS OF ELECTROLYTE AND FLUID BALANCE, NEC
== END 2017-06-20 14:05 | disposition home health service (06) | DRG 253 ==
LOC: JER 08:34 → JERBED 11:35 → J5S 17:50
PROVIDERS: ADMIT Student in an Organized Health Care Education/Training Program; ATTEND Family Medicine
PROC: 047L341 Dilation of Left Femoral Artery with Drug-eluting Intraluminal Device, using Drug-Coated Balloon, Percutaneous Approach (ICD-10-PCS; principal; 2017-06-12)
PROC: 3E05317 Introduction of Other Thrombolytic into Peripheral Artery, Percutaneous Approach (ICD-10-PCS; 2017-06-12)
PROC: B41GZZZ Fluoroscopy of Left Lower Extremity Arteries (ICD-10-PCS; 2017-06-12)
DX: E11.52 Type 2 diabetes mellitus with diabetic peripheral angiopathy with gangrene (principal); I70.262 Atherosclerosis of native arteries of extremities with gangrene, left leg; M87.878 Other osteonecrosis, left toe(s); I09.81 Rheumatic heart failure; I10 Essential (primary) hypertension; E78.5 Hyperlipidemia, unspecified; E11.621 Type 2 diabetes mellitus with foot ulcer; I48.91 Unspecified atrial fibrillation; Z87.891 Personal history of nicotine dependence; Z79.84 Long term (current) use of oral hypoglycemic drugs; I70.292 Other atherosclerosis of native arteries of extremities, left leg; I77.1 Stricture of artery; E87.8 Other disorders of electrolyte and fluid balance, not elsewhere classified; R50.9 Fever, unspecified
CPT/HCPCS: 36415; 71046-TC-FY; 73630-TC-LT; 75635-TC; 76000-TC-FY; 80053; 80061; 81003; 81015; 82550; 82962; 83036; 83721; 83735; 84100; 84484; 85025; 85610; 85651; 85730; 87040; 87086; 87804; 93005; 93010; 99281-25; J1644

== ENCOUNTER 2018-03-11 09:43 | Inpatient (IN) | payer BC ==
[2018-03-11 09:59] VITALS: TEMP 98.4; BMI 22.3
[2018-03-11 12:24] LABS: BASO % 1.5 % (0-2.0); EOS % 0.9 % (0-4.5); HEMOGLOBIN 11.1 GM/dL (10.7-15.3); LYMPH % 25.2 % (8-40); MCH 29.4 pg (25.7-33.7); MCHC 32.7 g/dl (32.0-36.0); MEAN PLT VOLUME 9.6 fl (7.5-11.1); MONO % 6.7 % (3.8-10.2); NEUT % 65.7 % (42.8-82.8); PLATELET COUNT 195 K/MM3 (134-434); RBC 3.78 M/mm3 (3.60-5.2); RDW 14.3 % (11.6-15.6); WHITE BLOOD COUNT 8.1 K/mm3 (4.0-10.0)
[2018-03-11 12:43] LABS: ALBUMIN 3.6 g/dl (3.4-5.0); ALK PHOS 99 U/L (45-117); ANION GAP 6 MMOL/L (8-16); BILIRUBIN,TOTAL 0.3 mg/dL (0.2-1); BLOOD UREA NITROGEN 17 mg/dL (7-18); CHLORIDE 104 mmol/L (98-107); CO2 28 mmol/L (21-32); CREATININE 1.3 mg/dL (0.55-1.3); GLUCOSE,RANDOM 105 mg/dL (74-106); POTASSIUM 3.8 mmol/L (3.5-5.1); SGOT/AST 21 U/L (15-37); SGPT/ALT 27 U/L (13-61); SODIUM 138 mmol/L (136-145); TOT PROT 6.9 g/dl (6.4-8.2)
--- NOTE | 2018-03-11 12:48 | PDOC ---
History of Present Illness - History of Present Illness Initial Comments: 03/11/18 12:48 67YOF, with a significant past medical history of HTN, HLD, DM, PVD (s/p stenting), and chronic left toe ulcer/wound, who presents to the emergency department with, left 3rd and 4th toe pain. She describes her toes as dry, erythematous, and painful. Patient was seen by Dr. Harper yesterday for her symptoms who advised her to report to the ED today for admission and LLE angiogram. She denies recent fevers, chills, headache or dizziness. She denies recent nausea, vomit, diarrhea or constipation. She denies recent dysuria, frequency, urgency or hematuria. She denies recent chest pain or shortness of breath. Allergies: [place], apple, paxton Past surgical history: Angiogram (06/2017) Social history: Former smoker. Primary Care Physician: Dr. Sun <Arnaldo Fu - Last Filed: 03/11/18 13:01> - General History Source: Patient Exam Limitations: No Limitations <Leida Mueller - Last Filed: 03/11/18 13:54> - General Chief Complaint: Pain Stated Complaint: LT FOOT PAIN (PCP SENT) Time Seen by Provider: 03/11/18 11:21 Past History <Arnaldo Fu - Last Filed: 03/11/18 13:01> - Past Medical History Anemia: No Asthma: No Cancer: No Cardiac Disorders: No CVA: No COPD: No CHF: No Dementia: No Diabetes: Yes GI Disorders: No Disorders: No HTN: Yes Hypercholesterolemia: Yes Liver Disease: No Seizures: No Thyroid Disease: No - Surgical History Abdominal Surgery: No Appendectomy: No Cardiac Surgery: No Cholecystectomy: No Lung Surgery: No Neurologic Surgery: No Orthopedic Surgery: No - Immunization History Immunization Up to Date: Yes - Suicide/Smoking/Psychosocial Hx Smoking History: Former smoker Have you smoked in the past 12 months: No Number of Cigarettes Smoked Daily: 0 If you are a former smoker, when did you quit?: ONE MONTH AGO Cigars Per Day: 0 Information on smoking cessation initiated: No 'Breaking Loose' booklet given: 06/12/17 Hx Alcohol Use: No Drug/Substance Use Hx: No Substance Use Type: None Hx Substance Use Treatment: No <Leida Mueller - Last Filed: 03/11/18 13:54> - Past Medical History Allergies/Adverse Reactions: Allergies Allergy/AdvReac Type Severity Reaction Status Date / Time almond Allergy Severe Hives Verified 03/11/18 09:59 apple Allergy Severe Hives Verified 03/11/18 09:59 paxton Allergy Severe Itching Verified 03/11/18 09:59 Home Medications: Ambulatory Orders Aspirin [ASA -] 81 mg PO HS 06/12/17 Losartan/Hydrochlorothiazide [Hyzaar 100-25 Tablet] 1 each PO DAILY 06/12/17 Metformin HCl 1,000 mg PO BID 06/12/17 Clopidogrel Bisulfate [Plavix -] 75 mg PO DAILY tablet 06/19/17 Baclofen 10 mg PO HS 03/10/18 Rosuvastatin [Crestor -] 20 mg PO DAILY 03/10/18 Metoprolol Succinate 100 mg PO DAILY 03/11/18 Review of Systems - Review of Systems Able to Perform ROS?: Yes Comments:: 03/11/18 12:49 Constitutional: no fevers or chills. HEENT: no headache or dizziness. No congestion. No visual/hearing disturbances. CVS: no cp or syncope. Resp: no sob. No cough. Abdomen: no abdominal pain, nausea or vomiting. Genitourinary: no urinary sx, hematuria. MUSCULOSKELETAL: No joint pain and swelling. No neck or back pain. +SKIN: Left 3rd and 4th toe dry, redness, and pain. no discharge, no rash. No wounds. Hematologic: no easy bruising/bleeding. NEUROLOGIC: No headache, dizziness, LOC or altered mental status. No weakness, numbness or tingling. All other systems reviewed and negative, or as documented in HPI. <Arnaldo Fu - Last Filed: 03/11/18 13:01> *Physical Exam - Vital Signs Last Vital Signs Temp Pulse Resp BP Pulse Ox 98.4 F 59 L 17 141/75 100 03/11/18 09:56 03/11/18 09:56 03/11/18 09:56 03/11/18 09:56 03/11/18 09:56 - Physical Exam Comments: 03/11/18 12:50 General: Well appearing, awake and alert, NAD. Neck: neck supple, FROM Resp: CTAB, normal and even respirations, no respiratory distress CVS: RRR, no murmurs, 2+ peripheral pulses throughout, no peripheral edema Abdomen: soft, NTND, no peritoneal signs. Back: nontender, normal inspection and ROM MSK: no edema, CANDELARIA x4, ROM intact. No clubbing or cyanosis. normal bulk and tone. Extremities: no calf tenderness Neuro: alert, oriented appropriately; no focal neurologic deficits +Skin: Left 3rd and 4th distal toe erythematous, tenderness, no necrosis, with dry skin and desquamatization.. No purulent discharge. cap refill <2 sec, normal color <Arnaldo Fu - Last Filed: 03/11/18 13:01> - Vital Signs Last Vital Signs Temp Pulse Resp BP Pulse Ox 98.4 F 59 L 17 141/75 100 03/11/18 09:56 03/11/18 09:56 03/11/18 09:56 03/11/18 09:56 03/11/18 09:56 <Leida Mueller - Last Filed: 03/11/18 13:54> Moderate Sedation - Procedure Monitoring Vital Signs: Procedure Monitoring Vital Signs Temperature 98.4 F 03/11/18 09:56 Pulse Rate 59 L 03/11/18 09:56 Respiratory Rate 17 03/11/18 09:56 Blood Pressure 141/75 03/11/18 09:56 O2 Sat by Pulse Oximetry (%) 100 03/11/18 09:56 <Arnaldo Fu - Last Filed: 03/11/18 13:01> - Procedure Monitoring Vital Signs: Procedure Monitoring Vital Signs Temperature 98.4 F 03/11/18 09:56 Pulse Rate 59 L 03/11/18 09:56 Respiratory Rate 17 03/11/18 09:56 Blood Pressure 141/75 03/11/18 09:56 O2 Sat by Pulse Oximetry (%) 100 03/11/18 09:56 <Leida Mueller - Last Filed: 03/11/18 13:54> ED Treatment Course - LABORATORY CBC & Chemistry Diagram: 03/11/18 12:19 03/11/18 12:19 - ADDITIONAL ORDERS Additional order review: Laboratory Results 03/11/18 03/11/18 12:19 12:05 Sodium 138 Potassium 3.8 Chloride 104 Carbon Dioxide 28 Anion Gap 6 L BUN 17 Creatinine 1.3 Creat Clearance w eGFR 40.73 Random Glucose 105 Calcium 9.0 Total Bilirubin 0.3 AST 21 ALT 27 Alkaline Phosphatase 99 C-Reactive Protein 1.0 H Total Protein 6.9 Albumin 3.6 03/11/18 12:19 RBC 3.78 MCV 90.0 MCHC 32.7 RDW 14.3 MPV 9.6 Neutrophils % 65.7 Lymphocytes % 25.2 D Monocytes % 6.7 Eosinophils % 0.9 Basophils % 1.5 <Arnaldo Fu - Last Filed: 03/11/18 13:01> - LABORATORY CBC & Chemistry Diagram: 03/11/18 12:19 03/11/18 12:19 - ADDITIONAL ORDERS Additional order review: Laboratory Results 03/11/18 03/11/18 12:19 12:05 Sodium 138 Potassium 3.8 Chloride 104 Carbon Dioxide 28 Anion Gap 6 L BUN 17 Creatinine 1.3 Creat Clearance w eGFR 40.73 Random Glucose 105 Calcium 9.0 Total Bilirubin 0.3 AST 21 ALT 27 Alkaline Phosphatase 99 C-Reactive Protein 1.0 H Total Protein 6.9 Albumin 3.6 03/11/18 12:19 RBC 3.78 MCV 90.0 MCHC 32.7 RDW 14.3 MPV 9.6 Neutrophils % 65.7 Lymphocytes % 25.2 D Monocytes % 6.7 Eosinophils % 0.9 Basophils % 1.5 - RADIOLOGY Radiology Studies Ordered: Category Date Time Status CHEST PA & LAT [RAD] Stat Radiology 03/11/18 12:45 Ordered FOOT-LEFT [RAD] Stat Radiology 03/11/18 11:26 Ordered <Leida Mueller - Last Filed: 03/11/18 13:54> Medical Decision Making - Medical Decision Making 03/11/18 13:[address] Valladares's office for admission, awaiting call back. <Arnaldo Fu - Last Filed: 03/11/18 13:01> - Medical Decision Making 03/11/18 12:47 Multani 67 y/o Female with h/o HTN, HLD DM2, PVD s/p stent, chronic left toe ulcer/wound presenting with pain to LLE/toes. Has been seen by Vascular surgeon , Dr. Harper. Patient sustained a wound to the LT 4th toe about 1 week ago. Patient had a LLE angiogram with stent placement performed on 06/16/2017. Planned for admission for LLE angiogram this week. By Dr Harper. No fever or chills. Vital signs reviewed, wnl. no fever Prior notes reviewed, including admissions, discharges and consultations. laboratory results and imaging reviewed, basic labs and lytes wnl, relatively normal inflammatory markers. blood cultures pending. Xray foot neg for bony changes or erosions, post op changex to left 5th toe. ED course: analgesia, no acute events. preop workup initiated. admission ekg and cxr Dispo: Admit for vascular eval, PVD management, angiogram and management.. Discussed results and management plan with pt at bedside, agree with impression and plan admit to Dr. Valladares service consult put in for Dr. Harper. 03/11/18 13:53 <Leida Mueller - Last Filed: 03/11/18 13:54> *DC/Admit/Observation/Transfer - Attestations Scribe Attestion: 03/11/18 12:50 Documentation prepared by Arnaldo Fu, acting as medical office receptionist assistant for Leida Mueller MD. <Arnaldo Fu - Last Filed: 03/11/18 13:01> - Discharge Dispostion Decision to Admit order: Yes Decision to Admit order Date/Time: Decision to Admit Order Category Date Time Status Decision to Admit to Hospital Routine Admission 03/11/18 11:29 Active - Attestations Physician Attestion: 03/11/18 12:52 I, Leida Mueller MD, attest that this document has been prepared under my direction and personally reviewed by me in its entirety. I further attest, that it accurately reflects all work, treatment, procedures and medical decision -making performed by me. <Leida Mueller - Last Filed: 03/11/18 13:54> Diagnosis at time of Disposition: Ischemic necrosis of toe, Peripheral vascular disease of lower extremity with ulceration - Discharge Dispostion Condition at time of disposition: Guarded
[2018-03-11 12:54] VITALS: BP 138/72; PULSE 61
[2018-03-11] MEDS ORDERED: ACETAMINOPHEN 1000 MG/100 ML VIAL (NON FORMULARY) IVPB ONE (13:56)
[2018-03-11] MEDS ORDERED: ACETAMINOPHEN INJECTION 100 ML IVPB ONE (14:38)
--- NOTE | 2018-03-11 14:58 | CONSULT ---
Consult Consult Specialty:: Vascular Surgery Reason for Consultation:: Pt with Left lower extremity claudication and erythema. Pt has pain in limb. [facility]. Pt had SFA stent placed 06/29. Pt since then is still smoking. US yesterday showed SFA stent occlusion. Pt here today for admission. Will do angiogram katerina afternoon. - History Source Limitations to Obtaining History: No Limitations - Past Medical History Cardio/Vascular: Yes: AFIB, HTN, Hyperlipdemia Endocrine: Yes: Diabetes Insipidus - Past Surgical History Past Surgical History: Yes: None - Alcohol/Substance Use Hx Alcohol Use: No - Smoking History Smoking history: Former smoker Have you smoked in the past 12 months: No Aproximately how many cigarettes per day: 0 If you are a former smoker, when did you quit?: ONE MONTH AGO Home Medications - Allergies Allergies/Adverse Reactions: Allergies Allergy/AdvReac Type Severity Reaction Status Date / Time almond Allergy Severe Hives Verified 03/11/18 09:59 apple Allergy Severe Hives Verified 03/11/18 09:59 paxton Allergy Severe Itching Verified 03/11/18 09:59 - Home Medications Home Medications: Ambulatory Orders Aspirin [ASA -] 81 mg PO HS 06/12/17 Losartan/Hydrochlorothiazide [Hyzaar 100-25 Tablet] 1 each PO DAILY 06/12/17 Metformin HCl 1,000 mg PO BID 06/12/17 Clopidogrel Bisulfate [Plavix -] 75 mg PO DAILY tablet 06/19/17 Baclofen 10 mg PO HS 03/10/18 Rosuvastatin [Crestor -] 20 mg PO DAILY 03/10/18 Metoprolol Succinate 100 mg PO DAILY 03/11/18 Review of Systems - Review of Systems Constitutional: reports: No Symptoms Eyes: reports: No Symptoms HENT: reports: No Symptoms Neck: reports: No Symptoms Cardiovascular: reports: No Symptoms Respiratory: reports: No Symptoms Gastrointestinal: reports: No Symptoms Genitourinary: reports: No Symptoms Musculoskeletal: reports: No Symptoms Integumentary: reports: No Symptoms Neurological: reports: No Symptoms Endocrine: reports: No Symptoms Hematology/Lymphatic: reports: No Symptoms Psychiatric: reports: No Symptoms Physical Exam Vital Signs: Vital Signs Temperature 98.4 F 03/11/18 09:56 Pulse Rate 61 03/11/18 12:53 Respiratory Rate 20 03/11/18 12:53 Blood Pressure 138/72 03/11/18 12:53 O2 Sat by Pulse Oximetry (%) 100 03/11/18 12:53 Constitutional: Yes: Well Nourished, No Distress, Calm Eyes: Yes: WNL, Conjunctiva Clear, EOM Intact HENT: Yes: WNL, Atraumatic, Normocephalic Neck: Yes: WNL, Supple, Trachea Midline Cardiovascular: Yes: WNL, Regular Rate and Rhythm Respiratory: Yes: WNL, Regular, CTA Bilaterally Gastrointestinal: Yes: WNL, Normal Bowel Sounds ...Rectal Exam: Yes: WNL Renal/: Yes: WNL Breast(s): Yes: WNL Musculoskeletal: Yes: WNL Extremities: Yes: WNL, Other (erythema left foot. No palpable pulses in left foot. Dopplerable pulses in right foot.) Edema: No Peripheral Pulses WNL: No Integumentary: Yes: WNL Neurological: Yes: WNL, Alert, Oriented ...Motor Strength: WNL Psychiatric: Yes: WNL Labs: CBC, BMP 03/11/18 12:19 03/11/18 12:19 Problem List - Problems (1) Claudication of left lower extremity Assessment/Plan: Left lower extremity claudiciation 1. NPO past midnight except meds 2. Angiogram katerina afternoon. Edvin Harper DO Code(s): I73.9 - PERIPHERAL VASCULAR DISEASE, UNSPECIFIED
--- NOTE | 2018-03-11 15:52 | EKG ---
Test Reason : Blood Pressure : / mmHG Vent. Rate : 056 BPM Atrial Rate : 056 BPM P-R Int : 130 ms QRS Dur : 088 ms QT Int : 468 ms P-R-T Axes : 058 070 039 degrees QTc Int : 451 ms SINUS BRADYCARDIA WITH PREMATURE ATRIAL COMPLEXES MODERATE VOLTAGE CRITERIA FOR LVH, MAY BE NORMAL VARIANT BORDERLINE ECG WHEN COMPARED WITH ECG OF 12-JUN-2017 10:46, PREMATURE ATRIAL COMPLEXES ARE NOW PRESENT Confirmed by ZULMA CHI, JOYCE ([id number]) on 03/11/2018 3:52:27 PM Referred By: JOSEF ZHENG Confirmed By:JOYCE MAYA MD
[2018-03-12] MEDS ORDERED: ONDANSETRON 4 MG/2 ML VIAL IVPUSH PRN (11:51)
[2018-03-12] MEDS ORDERED: LACTATED RINGERS SOLUTION 1,000 ML IV SCH (12:00)
== END 2018-03-11 17:36 | disposition left against medical advice (07) | DRG 301 ==
LOC: JER 09:43 → JERBED 11:29
PROVIDERS: ADMIT Family Medicine; ATTEND Family Medicine
DX: E11.51 Type 2 diabetes mellitus with diabetic peripheral angiopathy without gangrene (principal); I10 Essential (primary) hypertension; E78.5 Hyperlipidemia, unspecified; Z79.84 Long term (current) use of oral hypoglycemic drugs
CPT/HCPCS: 36415; 71046-TC-FY; 73630-TC-LT; 80053; 85025; 85651; 86140; 86850; 86900; 86901; 87040; 87070; 87205; 93005; 93010; 99283-25; J0131

== ENCOUNTER 2018-03-12 18:03 | Inpatient (IN) | payer BC ==
--- NOTE | 2018-03-12 19:19 | PDOC ---
Attending Attestation - HPI HPI: 03/12/18 21:28 The patient is a 67 year old female with a significant past medical history of HTN, HLD, DM, PVD (s/p stenting), and chronic left toe ulcer/wound, who presents to the ED with left 3rd and 4th toe pain. She describes her toes as dry , erythematous, and painful. Patient was seen by Dr. Harper yesterday and was told to come into the ED today for admission and LLE angiogram. Denies fever or chills. Denies any other symptoms. - Physicial Exam PE: 03/12/18 21:28 Constitutional: Awake, alert, oriented. No acute distress. Head: Normocephalic. Atraumatic Eyes: PERRL. EOMI. Conjunctivae are not pale. ENT: Mucous membranes are moist and intact. Posterior pharynx without exudates or erythema. Uvula midline. Neck: Supple. Full ROM. No lymphadenopathy. Cardiovascular: Regular rate. Regular rhythm. S1, S2 regular. Distal pulses are 2+ and symmetric. Pulmonary/Chest: No evidence of respiratory distress. Clear to auscultation bilaterally No wheezing, rales or rhonchi. Abdominal: Soft and non-distended. There is no tenderness. No rebound, guarding or rigidity. No organomegaly. No palpable masses. Good bowel sounds. Back: No CVA tenderness. Musculoskeletal: + Left foot is cool and red, diminished pedal pulses. Tenderness, paresthesia in foot. Popliteal pulse. No edema. No cyanosis. No clubbing. Full range of motion in all extremities. Nocalf tenderness. Skin: Skin is warm and dry. No petechiae. No purpura. Neurological: Alert and oriented to person, place, and time. Cranial nerves II -XII are grossly intact. Normal speech. Strength is grossly symmetric. No sensory deficits. Psychiatric: Good eye contact. Normal interaction, affect and behavior. <Chiquis Jernigan - Last Filed: 03/12/18 21:28> - Resident Resident Name: Shaan Suárez - ED Attending Attestation I have performed the following: I have examined & evaluated the patient, The case was reviewed & discussed with the resident, I agree w/resident's findings & plan, Exceptions are as noted - Medical Decision Making 03/12/18 19:19 I, Dr. Elly Medley DO, attest that this document has been prepared under my direction and personally reviewed by me in its entirety. I further attest, that it accurately reflects all work, treatment, procedures and medical decision -making performed by me. 03/12/18 21:23 67yo female with LLE claudication sent by Dr. Harper for preop labs and angio of LLE -pt with cool L foot -wounds to 3rd and 4th toes on L -mild redness -hyperasthesias to L foot -pt was in the ED yesterday, became frustated and left the ED, Dr. Harper sent her back for admission for surgical intervention 03/12/18 21:[address] Harper who is planning angiogram for tomorrow 03/12/18 21:31 npo after midnight continue ivf hydration 03/12/18 21:32 microblog sent to [facility] for admission 03/12/18 21:35 case discussed with [employer] Emilie who accepts pt to service <Elly Medley - Last Filed: 03/12/18 21:35> *DC/Admit/Observation/Transfer - Discharge Dispostion Decision to Admit order: Yes Decision to Admit order Date/Time: Decision to Admit Order Category Date Time Status Decision to Admit to Hospital Routine Admission 03/12/18 21:34 Ordered <Elly Medley - Last Filed: 03/12/18 21:35> Diagnosis at time of Disposition: Claudication of left lower extremity, Ischemic necrosis of toe - Discharge Dispostion Condition at time of disposition: Fair - Referrals Referrals: Jolie Sun MD [Primary Care Provider] - - Patient Instructions - Post Discharge Activity Heart Score/ECG Review - ECG Intrepretation Comment:: 03/12/18 21:23 sinus at 62, lvh, nl axis, st depression inferior leads, abnl ekg <Elly Medley - Last Filed: 03/12/18 21:35> Attestations - Attestations 03/12/18 21:29 Documentation prepared by Chiquis Jernigan, acting as medical director/head team physician for Elly Medley DO <Chiquis Jernigan - Last Filed: 03/12/18 21:28>
--- NOTE | 2018-03-12 19:37 | PDOC ---
History of Present Illness - General Chief Complaint: Pain, Acute Stated Complaint: PCP ADMIT Time Seen by Provider: 03/12/18 19:00 History Source: Patient Exam Limitations: No Limitations - History of Present Illness Initial Comments: 03/12/18 19:37 67 yo female pmh HTN, HLD, DM, peripheral vascular disease (s/p stenting) and chronic left toe ulcer presents to the ED from home with left 3rd and 4th toe pain. Pt seen in ED yesterday as directed by Dr. Harper in vascular surgery for LLE angiogram pre-op work up for surgical intervention. Denies F/C/N/V, CP or SOB Past History - Past Medical History Allergies/Adverse Reactions: Allergies Allergy/AdvReac Type Severity Reaction Status Date / Time almond Allergy Severe Hives Verified 03/11/18 09:59 apple Allergy Severe Hives Verified 03/11/18 09:59 paxton Allergy Severe Itching Verified 03/11/18 09:59 Home Medications: Ambulatory Orders Aspirin [ASA -] 81 mg PO HS 06/12/17 Losartan/Hydrochlorothiazide [Hyzaar 100-25 Tablet] 1 each PO DAILY 06/12/17 Metformin HCl 1,000 mg PO BID 06/12/17 Clopidogrel Bisulfate [Plavix -] 75 mg PO DAILY tablet 06/19/17 Baclofen 10 mg PO HS 03/10/18 Rosuvastatin [Crestor -] 20 mg PO DAILY 03/10/18 Metoprolol Succinate 100 mg PO DAILY 03/11/18 Anemia: No Asthma: No Cancer: No Cardiac Disorders: No CVA: No COPD: No CHF: No Dementia: No Diabetes: Yes (NIDM) GI Disorders: No Disorders: No HTN: Yes Hypercholesterolemia: Yes Liver Disease: No Seizures: No Thyroid Disease: No - Surgical History Abdominal Surgery: No Appendectomy: No Cardiac Surgery: No Cholecystectomy: No Lung Surgery: No Neurologic Surgery: No Orthopedic Surgery: No - Immunization History Immunization Up to Date: Yes - Suicide/Smoking/Psychosocial Hx Smoking History: Former smoker Have you smoked in the past 12 months: No Number of Cigarettes Smoked Daily: 0 If you are a former smoker, when did you quit?: ONE MONTH AGO Cigars Per Day: 0 Information on smoking cessation initiated: No 'Breaking Loose' booklet given: 06/12/17 Hx Alcohol Use: No Drug/Substance Use Hx: No Substance Use Type: None Hx Substance Use Treatment: No Review of Systems - Review of Systems Constitutional: No: Chills, Fever, Weakness Respiratory: No: Shortness of Breath Cardiac (ROS): No: Chest Pain ABD/GI: No: Constipated, Diarrhea, Nausea, Vomiting : No: Burning, Dysuria, Flank Pain Musculoskeletal: No: Back Pain Integumentary: Yes: Change in Color (left 3rd and 4th toe redness) Neurological: No: Weakness *Physical Exam - Vital Signs Last Vital Signs Temp Pulse Resp BP Pulse Ox 98.2 F 64 16 116/37 L 98 03/12/18 18:33 03/12/18 18:33 03/12/18 18:33 03/12/18 18:33 03/12/18 18:33 - Physical Exam General Appearance: Yes: Nourished, Appropriately Dressed. No: Apparent Distress HEENT: positive: EOMI Respiratory/Chest: positive: Lungs Clear, Normal Breath Sounds Cardiovascular: positive: Regular Rhythm, Regular Rate, S1, S2. negative: Edema , JVD, Murmur Vascular Pulses: Dorsalis-Pedis (R): 2+, Doralis-Pedis (L): 2+ Gastrointestinal/Abdominal: positive: Normal Bowel Sounds, Flat, Soft, Rebound, Tenderness. negative: Pulsatile Mass, Guarding Extremity: positive: Normal Capillary Refill, Normal Range of Motion, Coldness ( bilateral feet). negative: Calf Tenderness Neurologic: positive: Fully Oriented, Alert, Normal Mood/Affect Moderate Sedation - Procedure Monitoring Vital Signs: Procedure Monitoring Vital Signs Temperature 98.2 F 03/12/18 18:33 Pulse Rate 64 03/12/18 18:33 Respiratory Rate 16 03/12/18 18:33 Blood Pressure 116/37 L 03/12/18 18:33 O2 Sat by Pulse Oximetry (%) 98 03/12/18 18:33 ED Treatment Course - LABORATORY CBC & Chemistry Diagram: 03/13/18 07:10 03/13/18 07:10 Medical Decision Making - Medical Decision Making 67 yo female sent to ED for pre op workup and admission by PCP and Vascular Surg. Of note, pt in ED yesterday, admission process was underway when she became upset with the amount of time it took to get a hospital bed and left the ED after receiving pain medication. Has no new complaints today Vitals wnl left foot x ray done yesterday negative for any bony changes or erosions. Will not repeat today Will repeat pre op lab work, control pain, give IV fluid and admit for LLE angiogram and surgical intervention. Dr. Harper aware of pt and [employer] Emilie received sign out and will accept her *DC/Admit/Observation/Transfer Diagnosis at time of Disposition: Claudication of left lower extremity, Ischemic necrosis of toe - Discharge Dispostion Condition at time of disposition: Fair - Referrals - Patient Instructions - Post Discharge Activity
[2018-03-12 19:57] LABS: BASO % 0.8 % (0-2.0); EOS % 0.5 % (0-4.5); HEMATOCRIT 32.9 % (32.4-45.2); HEMOGLOBIN 11.5 GM/dL (10.7-15.3); LYMPH % 25.1 % (8-40); MCH 31.2 pg (25.7-33.7); MEAN CELL VOLUME 89.1 fl (80-96); MEAN PLT VOLUME 9.7 fl (7.5-11.1); MONO % 6.8 % (3.8-10.2); NEUT % 66.8 % (42.8-82.8); PLATELET COUNT 210 K/MM3 (134-434); RBC 3.69 M/mm3 (3.60-5.2); RDW 14.8 % (11.6-15.6); WHITE BLOOD COUNT 9.6 K/mm3 (4.0-10.0)
[2018-03-12 20:08] LABS: INR 0.99 (0.83-1.09); PROTHROMBIN TIME (PATIENT) 11.7 SEC (9.7-13.0)
[2018-03-12 20:21] LABS: ALBUMIN 3.9 g/dl (3.4-5.0); ALK PHOS 100 U/L (45-117); ANION GAP 13 MMOL/L (8-16); BILIRUBIN,TOTAL 0.4 mg/dL (0.2-1); BLOOD UREA NITROGEN 30 mg/dL (7-18); CALCIUM 9.4 mg/dL (8.5-10.1); CHLORIDE 101 mmol/L (98-107); CO2 22 mmol/L (21-32); CREATININE 2.1 mg/dL (0.55-1.3); GLUCOSE,RANDOM 80 mg/dL (74-106); POTASSIUM 4.2 mmol/L (3.5-5.1); SGOT/AST 33 U/L (15-37); SGPT/ALT 27 U/L (13-61); SODIUM 136 mmol/L (136-145); TOT PROT 7.3 g/dl (6.4-8.2)
[2018-03-12] MEDS ORDERED: SODIUM CHLORIDE 0.9% 1000 ML INFUS.BAG IV ONE (21:21)
--- NOTE | 2018-03-12 21:34 | HP ---
Admitting History and Physical - Primary Care Physician PCP: Bernard Valladares - Admission Chief Complaint: Left foot pain, left toes #3, #4, Erythema History of Present Illness: This is a 67 y/o woman with a PMHx of: HTN, HLD, DM, PVD s/p stenting, Chronic left toe ulcer. Who presents to the ED with left foot/ 3rd, 4th toe pain, erythema. Patient was seen by Dr. Harper and was sent in for admission for LLE Angiogram. Patient reports being in the ED the night before for same, but left AMA due to frustration with boarding in the ED. Patient describes the pain as burning with numbness. Patient reports stubbing her toes and being seen for it without improvement. Patient denies fever, chills, cough, SOB, dizziness, CP, palpitations, AP, N/V/D, constipation, dysuria. History Source: Patient Limitations to Obtaining History: No Limitations - Past Medical History Cardiovascular: Yes: AFIB, HTN, Hyperlipdemia Endocrine: Yes: Diabetes Insipidus - Past Surgical History Past Surgical History: Yes: None - Smoking History Smoking history: Former smoker Have you smoked in the past 12 months: No Aproximately how many cigarettes per day: 0 If you are a former smoker, when did you quit?: ONE MONTH AGO - Alcohol/Substance Use Hx Alcohol Use: No - Social History Usual Living Arrangement: Yes: Alone ADL: Independent History of Recent Travel: No Home Medications - Allergies Allergies/Adverse Reactions: Allergies Allergy/AdvReac Type Severity Reaction Status Date / Time almond Allergy Severe Hives Verified 03/11/18 09:59 apple Allergy Severe Hives Verified 03/11/18 09:59 paxton Allergy Severe Itching Verified 03/11/18 09:59 - Home Medications Home Medications: Ambulatory Orders Aspirin [ASA -] 81 mg PO HS 06/12/17 Losartan/Hydrochlorothiazide [Hyzaar 100-25 Tablet] 1 each PO DAILY 06/12/17 Metformin HCl 1,000 mg PO BID 06/12/17 Clopidogrel Bisulfate [Plavix -] 75 mg PO DAILY tablet 06/19/17 Baclofen 10 mg PO HS 03/10/18 Rosuvastatin [Crestor -] 20 mg PO DAILY 03/10/18 Metoprolol Succinate 100 mg PO DAILY 11/28/18 Review of Systems - Review of Systems Constitutional: reports: No Symptoms Eyes: reports: No Symptoms HENT: reports: No Symptoms Neck: reports: No Symptoms Cardiovascular: reports: No Symptoms Respiratory: reports: No Symptoms Gastrointestinal: reports: No Symptoms Genitourinary: reports: No Symptoms Breasts: reports: No Symptoms Reported Musculoskeletal: reports: Extremity Pain Integumentary: reports: No Symptoms Neurological: reports: Numbness Endocrine: reports: No Symptoms Hematology/Lymphatic: reports: No Symptoms Psychiatric: reports: No Symptoms Pain Intensity: 6 Physical Examination Vital Signs: Vital Signs Temperature 98.2 F 03/12/18 18:33 Pulse Rate 64 03/12/18 18:33 Respiratory Rate 16 03/12/18 18:33 Blood Pressure 116/37 L 03/12/18 18:33 O2 Sat by Pulse Oximetry (%) 98 03/12/18 18:33 Constitutional: Yes: Anxious, Thin Eyes: Yes: WNL, Conjunctiva Clear, EOM Intact, PERRL HENT: Yes: WNL, Atraumatic, Normocephalic Neck: Yes: WNL, Supple, Trachea Midline Cardiovascular: Yes: WNL, Regular Rate and Rhythm, S1, S2 Respiratory: Yes: WNL, Regular, CTA Bilaterally Gastrointestinal: Yes: WNL, Normal Bowel Sounds, Soft Renal/: Yes: WNL Breast(s): Yes: WNL Musculoskeletal: Yes: WNL Extremities: Yes: Cool, Erythema, Pallor. No: Calf Tenderness Edema: No Peripheral Pulses WNL: Yes (diminished to B/L pedal pulses) Wound/Incision: Yes: Reddened, Other (necrosis to L-toes #3,#4) Neurological: Yes: Numbness (b/l feet/toes) ...Motor Strength: WNL Psychiatric: Yes: WNL, Alert, Oriented Labs: CBC, BMP 03/12/18 19:31 03/12/18 19:31 Current Medications Generic Name Dose Route Start Last Admin Trade Name Freq PRN Reason Stop Dose Admin Morphine Sulfate 2 mg 03/12/18 22:01 03/13/18 01:37 Morphine Sulfate IVPUSH 2 mg Q4H PRN Administration PAIN LEVEL 7 - 10 Intake & Output 03/10/18 03/11/18 03/12/18 03/13/18 23:59 23:59 23:59 23:59 Weight 56.245 kg Imaging - Results Chest X-ray: Report Reviewed (done on 03/11/18- no acute cardiopulmonary pathology), Image Reviewed EKG: Report Reviewed (NSR, possible left atrial enlargement LVH consider inferior ischemia QT/QTc 446/452) Problem List - Problems (1) Claudication of left lower extremity Assessment/Plan: Appreciate Vascular consult Angiogram scheduled for 03/13 Continue neurovscular checks Elevate extremities Code(s): I73.9 - PERIPHERAL VASCULAR DISEASE, UNSPECIFIED (2) Ischemic necrosis of toe Assessment/Plan: See above Code(s): I96 - GANGRENE, NOT ELSEWHERE CLASSIFIED (3) Peripheral vascular disease of lower extremity with ulceration Assessment/Plan: See above Code(s): I73.9 - PERIPHERAL VASCULAR DISEASE, UNSPECIFIED; L97.909 - NON-PRS CHRONIC ULC UNSP PRT OF UNSP LOW LEG W UNSP SEVERITY (4) Diabetes Assessment/Plan: stable BGMs ISS when diet resumed Code(s): E11.9 - TYPE 2 DIABETES MELLITUS WITHOUT COMPLICATIONS Qualifiers: Diabetes mellitus type: type 2 Diabetes mellitus complication detail: with foot ulcer (5) HTN (hypertension) Assessment/Plan: stable Monitor BP Will resume meds when verified Patient unable to confirm home meds Patient's home pharmacy not opened at this time Code(s): I10 - ESSENTIAL (PRIMARY) HYPERTENSION Assessment/Plan This is a 67 y/o woman with a PMHx of: HTN, HLD, PVD s/p stenting, DM. Admitted for Claudication of LLE, Ischemic Toes, PVD for further evaluation of their emergent condition. FEN gentle IVF Replete lytes prn NPO DVT ppx OOB Heparin SQ Dispo: Requires Inpatient Care Visit type - Emergency Visit Emergency Visit: Yes ED Registration Date: 03/12/18 Care time: The patient presented to the Emergency Department on the above date and was hospitalized for further evaluation of their emergent condition. - New Patient This patient is new to me today: Yes Date on this admission: 03/12/18 - Critical Care Critical Care patient: No
[2018-03-12 23:35] VITALS: BMI 22.6
[2018-03-13] MEDS: MORPHINE SULFATE 2 MG/ML VIAL IVPUSH PRN ×3 (01:37→16:01)
[2018-03-13 08:27] LABS: BASO % 1.1 % (0-2.0); EOS % 2.8 % (0-4.5); HEMATOCRIT 35.2 % (32.4-45.2); HEMOGLOBIN 11.4 GM/dL (10.7-15.3); LYMPH % 38.6 % (8-40); MCH 29.3 pg (25.7-33.7); MCHC 32.3 g/dl (32.0-36.0); MEAN CELL VOLUME 90.5 fl (80-96); MEAN PLT VOLUME 9.8 fl (7.5-11.1); MONO % 8.6 % (3.8-10.2); NEUT % 48.9 % (42.8-82.8); PLATELET COUNT 190 K/MM3 (134-434); RBC 3.89 M/mm3 (3.60-5.2); RDW 14.8 % (11.6-15.6); WHITE BLOOD COUNT 8.4 K/mm3 (4.0-10.0)
[2018-03-13 09:11] LABS: ANION GAP 11 MMOL/L (8-16); BLOOD UREA NITROGEN 29 mg/dL (7-18); CALCIUM 9.2 mg/dL (8.5-10.1); CHLORIDE 104 mmol/L (98-107); CO2 23 mmol/L (21-32); CREATININE 1.9 mg/dL (0.55-1.3); GLUCOSE,RANDOM 96 mg/dL (74-106); POTASSIUM 3.6 mmol/L (3.5-5.1); SODIUM 139 mmol/L (136-145)
[2018-03-13] MEDS ORDERED: DEXTROSE 5%-0.45% SALINE 1,000 ML IV SCH (09:30)
--- NOTE | 2018-03-13 10:16 | EKG ---
Test Reason : Blood Pressure : / mmHG Vent. Rate : 062 BPM Atrial Rate : 062 BPM P-R Int : 132 ms QRS Dur : 088 ms QT Int : 446 ms P-R-T Axes : 058 072 026 degrees QTc Int : 452 ms NORMAL SINUS RHYTHM POSSIBLE LEFT ATRIAL ENLARGEMENT LEFT VENTRICULAR HYPERTROPHY T WAVE ABNORMALITY, CONSIDER INFERIOR ISCHEMIA ABNORMAL ECG Confirmed by NATASHA DELGADO MD ([id number]) on 03/13/2018 10:16:08 AM Referred By: Confirmed By:NATASHA DELGADO MD
--- NOTE | 2018-03-13 13:31 | PN ---
Progress Note, Physician Chief Complaint: NOTES REVIEWED SCHEDULED FOR ANGIOPLASTY LEFT LEG - Current Medication List Current Medications: Active Medications Dextrose/Sodium Chloride (D5-1/2ns -) 1,000 mls @ 42 mls/hr IV ASDIR YARON Last Admin: 03/13/18 12:15 Dose: 42 mls/hr Morphine Sulfate (Morphine Sulfate) 2 mg IVPUSH Q4H PRN PRN Reason: PAIN LEVEL 7 - 10 Last Admin: 03/13/18 12:04 Dose: 2 mg - Objective Vital Signs: Vital Signs Temperature 97.5 F L 03/13/18 04:00 Pulse Rate 72 03/13/18 04:00 Respiratory Rate 18 03/13/18 04:00 Blood Pressure 158/83 03/13/18 04:00 O2 Sat by Pulse Oximetry (%) 98 03/12/18 23:18 Constitutional: Yes: Mild Distress Eyes: Yes: WNL HENT: Yes: WNL Neck: Yes: WNL Cardiovascular: Yes: WNL Respiratory: Yes: WNL Gastrointestinal: Yes: WNL Musculoskeletal: Yes: Muscle Weakness Extremities: Yes: Cold, Deformity, Pallor Edema: No Integumentary: Yes: Erythema, Pressure Ulcer, Rash, Venous Stasis Changes Wound/Incision: Yes: Open to air, Dressing Dry and Intact Neurological: Yes: Pre-Existing Deficit, Weakness ...Motor Strength: LLE Psychiatric: Yes: WNL Labs: CBC, BMP 03/13/18 07:10 03/13/18 07:10 INR, PTT INR 0.99 (0.83-1.09) 03/12/18 19:41 Problem List - Problems (1) Claudication of left lower extremity Code(s): I73.9 - PERIPHERAL VASCULAR DISEASE, UNSPECIFIED (2) Ischemic necrosis of toe Code(s): I96 - GANGRENE, NOT ELSEWHERE CLASSIFIED (3) Diabetes Code(s): E11.9 - TYPE 2 DIABETES MELLITUS WITHOUT COMPLICATIONS Qualifiers: Diabetes mellitus type: type 2 Diabetes mellitus complication detail: with foot ulcer (4) HTN (hypertension) Code(s): I10 - ESSENTIAL (PRIMARY) HYPERTENSION (5) Peripheral vascular disease of lower extremity with ulceration Code(s): I73.9 - PERIPHERAL VASCULAR DISEASE, UNSPECIFIED; L97.909 - NON-PRS CHRONIC ULC UNSP PRT OF UNSP LOW LEG W UNSP SEVERITY Assessment/Plan ANGIOPLASTY TODAY BGM CHECKS A1C LABS VASC SX EVAL
[2018-03-13] MEDS ORDERED: CLOPIDOGREL BISULFATE 75 MG TABLET (FP) PO SCH (15:15)
[2018-03-13] MEDS ORDERED: LOSARTAN 50MG/HCTZ 12.5MG 1 TAB (FP) PO SCH (15:15)
[2018-03-13] MEDS ORDERED: INSULIN SLIDING SCALE (NOVOLOG) 1 VIAL SQ SCH (16:30)
[2018-03-13] MEDS ORDERED: LIDOCAINE HCL 1%, 10 MG/ML (20ML VIAL) ONE (16:38)
[2018-03-13] MEDS ORDERED: HEPARIN NA (PORCINE) 5,000 UNITS/ML 1ML VIAL ONE (16:38)
--- NOTE | 2018-03-13 17:07 | CONSULT ---
Consult Consult Specialty:: Nephrology Reason for Consultation:: BROOK - History of Present Illness Chief Complaint: left third and 4th toe pain History of Present Illness: Pt is a 67 year old female with pmhx of HTN, HLD, DM and PVD with stents who presents with left foot and 3rd and 4th toe pain. She also complains of erythema. She denies shortness of breath. She was found to have elevated creatinine and I was called to evaluate her. She does have hx of PVD and dos have stents. She has a chronic left leg ulcer. She was sent in for angiogram of the leg. She denies fevers or chills. - History Source History Provided By: Patient - Past Medical History Cardio/Vascular: Yes: AFIB, HTN, Hyperlipdemia Endocrine: Yes: Diabetes Insipidus - Past Surgical History Past Surgical History: Yes: None - Alcohol/Substance Use Hx Alcohol Use: No - Smoking History Smoking history: Former smoker Have you smoked in the past 12 months: No Aproximately how many cigarettes per day: 0 If you are a former smoker, when did you quit?: ONE MONTH AGO - Social History ADL: Independent History of Recent Travel: No Home Medications - Allergies Allergies/Adverse Reactions: Allergies Allergy/AdvReac Type Severity Reaction Status Date / Time almond Allergy Severe Hives Verified 03/11/18 09:59 apple Allergy Severe Hives Verified 03/11/18 09:59 paxton Allergy Severe Itching Verified 03/11/18 09:59 - Home Medications Home Medications: Ambulatory Orders Aspirin [ASA -] 81 mg PO HS 06/12/17 Losartan/Hydrochlorothiazide [Hyzaar 100-25 Tablet] 1 each PO DAILY 06/12/17 Metformin HCl 1,000 mg PO BID 06/12/17 Clopidogrel Bisulfate [Plavix -] 75 mg PO DAILY tablet 06/19/17 Baclofen 10 mg PO HS 03/10/18 Rosuvastatin [Crestor -] 20 mg PO DAILY 03/10/18 Metoprolol Succinate 100 mg PO DAILY 03/11/18 Family Disease History - Family Disease History Family History: Denies Review of Systems - Review of Systems Constitutional: denies: Chills, Fever Eyes: reports: No Symptoms HENT: reports: No Symptoms Neck: reports: No Symptoms Cardiovascular: reports: No Symptoms Respiratory: reports: No Symptoms Gastrointestinal: reports: No Symptoms Genitourinary: reports: No Symptoms Musculoskeletal: reports: Extremity Pain Integumentary: reports: Erythema Neurological: reports: No Symptoms Endocrine: reports: No Symptoms Hematology/Lymphatic: reports: No Symptoms Psychiatric: reports: No Symptoms Physical Exam Vital Signs: Vital Signs Temperature 98.1 F 03/13/18 15:39 Pulse Rate 61 03/13/18 15:39 Respiratory Rate 18 03/13/18 15:39 Blood Pressure 121/53 L 03/13/18 15:39 O2 Sat by Pulse Oximetry (%) 98 03/12/18 23:18 Constitutional: Yes: Calm Eyes: Yes: Conjunctiva Clear HENT: Yes: Atraumatic Neck: Yes: Supple Cardiovascular: Yes: S1, S2 Respiratory: Yes: CTA Bilaterally Gastrointestinal: Yes: Soft Renal/: Yes: WNL Musculoskeletal: Yes: Other (left leg erythema and pain) Edema: No Neurological: Yes: Oriented Psychiatric: Yes: Oriented Labs: CBC, BMP 03/13/18 07:10 03/13/18 07:10 Laboratory Tests 06/18/17 03/11/18 03/12/18 07:30 12:19 19:31 Sodium 136 Potassium Chloride Carbon Dioxide Anion Gap BUN Creatinine 0.6 1.3 Creat Clearance w eGFR > 60 40.73 23.42 03/13/18 07:10 Sodium 139 Potassium 3.6 Chloride 104 Carbon Dioxide 23 Anion Gap 11 BUN 29 H Creatinine 1.9 H Creat Clearance w eGFR 26.29 Problem List - Problems (1) BROOK (acute kidney injury) Code(s): N17.9 - ACUTE KIDNEY FAILURE, UNSPECIFIED (2) Claudication of left lower extremity Code(s): I73.9 - PERIPHERAL VASCULAR DISEASE, UNSPECIFIED (3) Ischemic necrosis of toe Code(s): I96 - GANGRENE, NOT ELSEWHERE CLASSIFIED (4) Diabetes Code(s): E11.9 - TYPE 2 DIABETES MELLITUS WITHOUT COMPLICATIONS Qualifiers: Diabetes mellitus type: type 2 Diabetes mellitus complication detail: with foot ulcer (5) HTN (hypertension) Code(s): I10 - ESSENTIAL (PRIMARY) HYPERTENSION Assessment/Plan Current Medications Generic Name Dose Route Start Last Admin Trade Name Freq PRN Reason Stop Dose Admin Aspirin 81 mg 03/14/18 10:00 Ecotrin - PO DAILY YARON Baclofen 10 mg 03/13/18 22:00 Lioresal - PO HS YARON Clopidogrel Bisulfate 75 mg 12/01/18 10:00 Plavix - PO DAILY YARON HCTZ/Losartan Potassium 2 tab 03/13/18 15:15 03/13/18 15:30 Hyzaar - PO 2 tab DAILY YARON Administration Dextrose/Sodium Chloride 1,000 mls @ 42 mls/hr 03/13/18 09:30 03/13/18 12:15 D5-1/2ns - IV 42 mls/hr ASDIR YARON Administration Insulin Aspart 1 vial 03/13/18 16:30 Novolog Vial Sliding Scale - SQ ACHS YARON Protocol Metoprolol Succinate 100 mg 03/13/18 15:15 03/13/18 15:30 Toprol Xl - PO 100 mg DAILY YARON Administration Morphine Sulfate 2 mg 03/12/18 22:01 03/13/18 16:01 Morphine Sulfate IVPUSH 2 mg Q4H PRN Administration PAIN LEVEL 7 - 10 Rosuvastatin Calcium 20 mg 03/13/18 22:00 Crestor - PO HS YARON Impression 1. BROOK 2. HTN 3. PVD 4. DM 5. HLD Plan - change fluids to d5ns and increase rate - monitor renal function closely - she is at risk for IBAN - hold hctz and losartan for now - can give hydralazine if bp is elevated - wound care to foot - will follow Dr Ferguson
[2018-03-13] MEDS ORDERED: DEXTROSE 5%-NORMAL SALINE 1,000 ML IV SCH (17:15)
[2018-03-13] MEDS ORDERED: MIDAZOLAM HCL 2 MG/2 ML SINGLE DOSE VIAL ONE ×2 (17:50→18:08)
[2018-03-13] MEDS ORDERED: ceFAZolin SODIUM 1 GM VIAL ONE (17:54)
[2018-03-13] MEDS ORDERED: ceFAZolin SODIUM 1 GM VIAL IVPB ONE (17:55)
[2018-03-13] MEDS ORDERED: PROPOFOL 20 ML ONE (18:24)
[2018-03-13] MEDS ORDERED: LIDOCAINE HCL 1%, 10 MG/ML (20ML VIAL) INF ONE (18:41)
[2018-03-13] MEDS ORDERED: ONDANSETRON 4 MG/2 ML VIAL IVPUSH PRN (19:07)
--- NOTE | 2018-03-13 19:08 | OP ---
Operative Note - Note: Operative Date: 03/13/18 Pre-Operative Diagnosis: LLE ischemia Operation: CO2 Aortogram, CO2 LLE angiogram, SFA angioplasty Findings: stent occlusion Post-Operative Diagnosis: Same as Pre-op Surgeon: Edvin Harper Anesthesia: Fractional Estimated Blood Loss (mls): 50 Operative Report Dictated: Yes
--- NOTE | 2018-03-13 19:27 | PN ---
Progress Note (short form) - Note Progress Note: Vascular Surgery s/P angiplasty left leg. Good dopplerable DP signal. Pt can be DC home katerina. Pt cannot smoke anymore or stents will close again. Please have pt follow up in office in one week. call for appt -- [phone] Cont plavix. Edvin baldwin DO
[2018-03-13] MEDS: DEXTROSE 5%-NORMAL SALINE 1,000 ML IV SCH (20:22)
[2018-03-13] MEDS ORDERED: ROSUVASTATIN CA 10 MG TABLET (FP) ONE (20:40)
[2018-03-13] MEDS ORDERED: BACLOFEN 10 MG TABLET (FP) PO SCH (22:00)
[2018-03-13] MEDS ORDERED: ROSUVASTATIN CA 20 MG TABLET (FP) PO SCH (22:00)
[2018-03-13] MEDS ORDERED: hydrALAZINE HCL 10 MG TABLET PO SCH (22:00)
[2018-03-13] MEDS: hydrALAZINE HCL 10 MG TABLET PO SCH (22:02)
[2018-03-13] MEDS: BACLOFEN 10 MG TABLET (FP) PO SCH (22:02)
[2018-03-13] MEDS: ROSUVASTATIN CA 20 MG TABLET (FP) PO SCH (22:03)
[2018-03-13] MEDS: INSULIN SLIDING SCALE (NOVOLOG) 1 VIAL SQ SCH (22:04)
[2018-03-14] MEDS: MORPHINE SULFATE 2 MG/ML VIAL IVPUSH PRN ×4 (02:43→20:57)
[2018-03-14] MEDS ORDERED: PT OWN MED DRAWER 7, Y5N ONE (05:07)
[2018-03-14] MEDS: hydrALAZINE HCL 10 MG TABLET PO SCH ×2 (06:12→21:11)
[2018-03-14] MEDS: INSULIN SLIDING SCALE (NOVOLOG) 1 VIAL SQ SCH ×4 (06:14→21:11)
[2018-03-14 08:44] LABS: ALBUMIN 3.2 g/dl (3.4-5.0); ALK PHOS 89 U/L (45-117); ANION GAP 7 MMOL/L (8-16); BILIRUBIN,TOTAL 0.4 mg/dL (0.2-1); BLOOD UREA NITROGEN 25 mg/dL (7-18); CALCIUM 8.4 mg/dL (8.5-10.1); CHLORIDE 107 mmol/L (98-107); CO2 25 mmol/L (21-32); CREATININE 1.6 mg/dL (0.55-1.3); GLUCOSE,RANDOM 116 mg/dL (74-106); POTASSIUM 4.3 mmol/L (3.5-5.1); SGOT/AST 33 U/L (15-37); SGPT/ALT 24 U/L (13-61); SODIUM 138 mmol/L (136-145); TOT PROT 6.2 g/dl (6.4-8.2)
[2018-03-14] MEDS ORDERED: ASPIRIN COATED 81 MG TABLET.EC PO SCH (10:00)
[2018-03-14] MEDS ORDERED: CLOPIDOGREL BISULFATE 75 MG TABLET (FP) PO SCH (10:00)
[2018-03-14 10:01] LABS: HEMATOCRIT 29.8 % (32.4-45.2); HEMOGLOBIN 10.3 GM/dL (10.7-15.3); MCH 31.1 pg (25.7-33.7); MCHC 34.5 g/dl (32.0-36.0); MEAN PLT VOLUME 10.7 fl (7.5-11.1); PLATELET COUNT 156 K/MM3 (134-434); RBC 3.31 M/mm3 (3.60-5.2); RDW 14.8 % (11.6-15.6); WHITE BLOOD COUNT 6.9 K/mm3 (4.0-10.0)
[2018-03-14] MEDS: ASPIRIN COATED 81 MG TABLET.EC PO SCH (10:16)
[2018-03-14] MEDS: CLOPIDOGREL BISULFATE 75 MG TABLET (FP) PO SCH (10:16)
--- NOTE | 2018-03-14 10:32 | PN ---
Progress Note, Physician Chief Complaint: A/P ANGIOPLASTY LEFT LOWER EXTREMITY AWAKE ALERT STILL WITH LEFT LEG RASH/ERYTHEMA - Current Medication List Current Medications: Active Medications Aspirin (Ecotrin -) 81 mg PO DAILY [facility] Last Admin: 03/14/18 10:16 Dose: 81 mg Baclofen (Lioresal -) 10 mg PO HS [facility] Last Admin: 03/13/18 22:02 Dose: 10 mg Clopidogrel Bisulfate (Plavix -) 75 mg PO DAILY [facility] Last Admin: 03/14/18 10:16 Dose: 75 mg Hydralazine HCl (Apresoline -) 10 mg PO TID [facility] Last Admin: 03/14/18 06:12 Dose: 10 mg Dextrose/Sodium Chloride (D5-Ns -) 1,000 mls @ 83 mls/hr IV ASDIR [facility] Last Admin: 03/13/18 20:22 Dose: 83 mls/hr Insulin Aspart (Novolog Vial Sliding Scale -) 1 vial SQ ACHS [facility]; Protocol Last Admin: 03/14/18 06:14 Dose: Not Given Metoprolol Succinate (Toprol Xl -) 100 mg PO DAILY [facility] Last Admin: 03/14/18 10:16 Dose: 100 mg Morphine Sulfate (Morphine Sulfate) 2 mg IVPUSH Q4H PRN PRN Reason: PAIN LEVEL 7 - 10 Last Admin: 03/14/18 06:56 Dose: 2 mg Rosuvastatin Calcium (Crestor -) 20 mg PO [facility] Last Admin: 03/13/18 22:03 Dose: 20 mg - Objective Vital Signs: Vital Signs Temperature 98.9 F 03/14/18 06:32 Pulse Rate 60 03/14/18 06:32 Respiratory Rate 20 03/14/18 06:32 Blood Pressure 124/64 03/14/18 06:32 O2 Sat by Pulse Oximetry (%) 98 03/13/18 21:00 Constitutional: Yes: Mild Distress Eyes: Yes: WNL HENT: Yes: WNL Neck: Yes: WNL Cardiovascular: Yes: WNL Respiratory: Yes: WNL Gastrointestinal: Yes: WNL Genitourinary: Yes: WNL Musculoskeletal: Yes: WNL Extremities: Yes: Erythema Edema: No Integumentary: Yes: Erythema Wound/Incision: Yes: Reddened Neurological: Yes: WNL ...Motor Strength: WNL Psychiatric: Yes: WNL Labs: CBC, BMP 03/14/18 07:30 03/14/18 07:30 INR, PTT INR 0.99 (0.83-1.09) 03/12/18 19:41 Problem List - Problems (1) Claudication of left lower extremity Code(s): I73.9 - PERIPHERAL VASCULAR DISEASE, UNSPECIFIED (2) Ischemic necrosis of toe Code(s): I96 - GANGRENE, NOT ELSEWHERE CLASSIFIED (3) Diabetes Code(s): E11.9 - TYPE 2 DIABETES MELLITUS WITHOUT COMPLICATIONS Qualifiers: Diabetes mellitus type: type 2 Diabetes mellitus complication detail: with foot ulcer (4) HTN (hypertension) Code(s): I10 - ESSENTIAL (PRIMARY) HYPERTENSION (5) Peripheral vascular disease of lower extremity with ulceration Code(s): I73.9 - PERIPHERAL VASCULAR DISEASE, UNSPECIFIED; L97.909 - NON-PRS CHRONIC ULC UNSP PRT OF UNSP LOW LEG W UNSP SEVERITY (6) BROOK (acute kidney injury) Code(s): N17.9 - ACUTE KIDNEY FAILURE, UNSPECIFIED (7) Toe ulcer due to DM Code(s): E11.621 - TYPE 2 DIABETES MELLITUS WITH FOOT ULCER; L97.509 - NON- PRESSURE CHRONIC ULCER OTH PRT UNSP FOOT W UNSP SEVERITY Assessment/Plan IV ABX PER ID? S/P ANGIOPLASTY LEFT LOWER EXTREMITY PLAVIX, ASA, STATINS SMIKING CESSATION ALL DISCUSSED WITH THE PATIENT DC PLANNING FOR TOMORROW
--- NOTE | 2018-03-14 18:52 | PN ---
Progress Note (short form) - Note Progress Note: Problems 1. BROOK 2. HTN 3. PVD 4. DM 5. HLD Current Medications Aspirin (Ecotrin -) 81 mg PO DAILY [facility] Last Admin: 03/14/18 10:16 Dose: 81 mg Baclofen (Lioresal -) 10 mg PO HS [facility] Last Admin: 03/13/18 22:02 Dose: 10 mg Clopidogrel Bisulfate (Plavix -) 75 mg PO DAILY [facility] Last Admin: 03/14/18 10:16 Dose: 75 mg Hydralazine HCl (Apresoline -) 10 mg PO TID [facility] Last Admin: 03/14/18 06:12 Dose: 10 mg Dextrose/Sodium Chloride (D5-Ns -) 1,000 mls @ 83 mls/hr IV ASDIR [facility] Last Admin: 03/13/18 20:22 Dose: 83 mls/hr Insulin Aspart (Novolog Vial Sliding Scale -) 1 vial SQ ACHS [facility]; Protocol Last Admin: 03/14/18 16:49 Dose: Not Given Metoprolol Succinate (Toprol Xl -) 100 mg PO DAILY [facility] Last Admin: 03/14/18 10:16 Dose: 100 mg Morphine Sulfate (Morphine Sulfate) 2 mg IVPUSH Q4H PRN PRN Reason: PAIN LEVEL 7 - 10 Last Admin: 03/14/18 13:34 Dose: 2 mg Rosuvastatin Calcium (Crestor -) 20 mg PO [facility] Last Admin: 03/13/18 22:03 Dose: 20 mg Last Vital Signs Temp Pulse Resp BP Pulse Ox 98.9 F 71 20 128/54 L 98 03/14/18 16:30 03/14/18 16:30 03/14/18 16:30 03/14/18 16:30 03/13/18 21:00 CBC, BMP 03/14/18 07:30 03/14/18 07:30 IMP- PVD BROOK improving with IVF Plan - change fluids to d5ns and increase rate - monitor renal function closely - she is at risk for IBAN - hold hctz and losartan for now - can give hydralazine if bp is elevated - wound care to foot - will follow
[2018-03-14] MEDS: DEXTROSE 5%-NORMAL SALINE 1,000 ML IV SCH ×2 (20:05→20:58)
[2018-03-14] MEDS ORDERED: ROSUVASTATIN CA 10 MG TABLET (FP) ONE (20:46)
[2018-03-14] MEDS: BACLOFEN 10 MG TABLET (FP) PO SCH (21:10)
[2018-03-14] MEDS: ROSUVASTATIN CA 20 MG TABLET (FP) PO SCH (21:10)
[2018-03-15] MEDS ORDERED: PT OWN MED DRAWER 7, Y5N ONE ×4 (06:15→22:56)
[2018-03-15] MEDS: INSULIN SLIDING SCALE (NOVOLOG) 1 VIAL SQ SCH ×4 (06:52→22:22)
[2018-03-15] MEDS: hydrALAZINE HCL 10 MG TABLET PO SCH ×4 (06:52→22:21)
[2018-03-15 08:27] LABS: HEMATOCRIT 29.4 % (32.4-45.2); HEMOGLOBIN 9.5 GM/dL (10.7-15.3); MCH 29.4 pg (25.7-33.7); MCHC 32.5 g/dl (32.0-36.0); MEAN CELL VOLUME 90.6 fl (80-96); MEAN PLT VOLUME 10.3 fl (7.5-11.1); PLATELET COUNT 120 K/MM3 (134-434); RBC 3.24 M/mm3 (3.60-5.2); RDW 14.5 % (11.6-15.6); WHITE BLOOD COUNT 5.9 K/mm3 (4.0-10.0)
[2018-03-15 08:29] LABS: ANION GAP 9 MMOL/L (8-16); BLOOD UREA NITROGEN 19 mg/dL (7-18); CALCIUM 8.3 mg/dL (8.5-10.1); CHLORIDE 109 mmol/L (98-107); CO2 22 mmol/L (21-32); CREATININE 1.1 mg/dL (0.55-1.3); GLUCOSE,RANDOM 145 mg/dL (74-106); POTASSIUM 3.6 mmol/L (3.5-5.1); SODIUM 140 mmol/L (136-145)
[2018-03-15] MEDS: CLOPIDOGREL BISULFATE 75 MG TABLET (FP) PO SCH (10:00)
[2018-03-15] MEDS: MORPHINE SULFATE 2 MG/ML VIAL IVPUSH PRN ×3 (10:00→20:34)
[2018-03-15] MEDS: ASPIRIN COATED 81 MG TABLET.EC PO SCH (10:00)
--- NOTE | 2018-03-15 12:22 | PN ---
Progress Note, Physician Chief Complaint: AWAKE ALERT C/O LEFT LEG PAIN - Current Medication List Current Medications: Active Medications Aspirin (Ecotrin -) 81 mg PO DAILY COUNTS INCLUDE 234 BEDS AT THE [facility] Last Admin: 03/15/18 10:00 Dose: 81 mg Baclofen (Lioresal -) 10 mg PO HS COUNTS INCLUDE 234 BEDS AT THE [facility] Last Admin: 03/14/18 21:10 Dose: 10 mg Clopidogrel Bisulfate (Plavix -) 75 mg PO DAILY COUNTS INCLUDE 234 BEDS AT THE [facility] Last Admin: 03/15/18 10:00 Dose: 75 mg Hydralazine HCl (Apresoline -) 10 mg PO TID COUNTS INCLUDE 234 BEDS AT THE [facility] Last Admin: 03/15/18 09:59 Dose: Not Given Dextrose/Sodium Chloride (D5-Ns -) 1,000 mls @ 83 mls/hr IV ASDIR COUNTS INCLUDE 234 BEDS AT THE [facility] Last Admin: 03/14/18 20:58 Dose: 83 mls/hr Insulin Aspart (Novolog Vial Sliding Scale -) 1 vial SQ ACHS COUNTS INCLUDE 234 BEDS AT THE [facility]; Protocol Last Admin: 03/15/18 06:52 Dose: Not Given Metoprolol Succinate (Toprol Xl -) 100 mg PO DAILY COUNTS INCLUDE 234 BEDS AT THE [facility] Last Admin: 03/15/18 10:00 Dose: 100 mg Morphine Sulfate (Morphine Sulfate) 2 mg IVPUSH Q4H PRN PRN Reason: PAIN LEVEL 7 - 10 Last Admin: 03/15/18 10:00 Dose: 2 mg Rosuvastatin Calcium (Crestor -) 20 mg PO [facility] Last Admin: 03/14/18 21:10 Dose: 20 mg - Objective Vital Signs: Vital Signs Temperature 98.7 F 03/15/18 06:00 Pulse Rate 53 L 03/15/18 06:00 Respiratory Rate 20 03/15/18 06:00 Blood Pressure 130/53 L 03/15/18 06:00 O2 Sat by Pulse Oximetry (%) 98 03/14/18 22:00 Constitutional: Yes: No Distress Eyes: Yes: WNL HENT: Yes: WNL Neck: Yes: WNL Cardiovascular: Yes: WNL Respiratory: Yes: WNL Gastrointestinal: Yes: WNL Genitourinary: Yes: WNL Musculoskeletal: Yes: Joint Swelling, Muscle Pain Extremities: Yes: Erythema Edema: Yes Edema: LLE: 1+ Peripheral Pulses WNL: Yes Integumentary: Yes: Erythema Wound/Incision: Yes: Dressing Removed, Reddened Neurological: Yes: Pre-Existing Deficit ...Motor Strength: LLE Psychiatric: Yes: WNL Labs: CBC, BMP 03/15/18 07:00 03/15/18 07:00 INR, PTT INR 0.99 (0.83-1.09) 03/12/18 19:41 Problem List - Problems (1) Claudication of left lower extremity Code(s): I73.9 - PERIPHERAL VASCULAR DISEASE, UNSPECIFIED (2) Ischemic necrosis of toe Code(s): I96 - GANGRENE, NOT ELSEWHERE CLASSIFIED (3) Diabetes Code(s): E11.9 - TYPE 2 DIABETES MELLITUS WITHOUT COMPLICATIONS Qualifiers: Diabetes mellitus type: type 2 Diabetes mellitus complication detail: with foot ulcer (4) HTN (hypertension) Code(s): I10 - ESSENTIAL (PRIMARY) HYPERTENSION (5) Peripheral vascular disease of lower extremity with ulceration Code(s): I73.9 - PERIPHERAL VASCULAR DISEASE, UNSPECIFIED; L97.909 - NON-PRS CHRONIC ULC UNSP PRT OF UNSP LOW LEG W UNSP SEVERITY (6) BROOK (acute kidney injury) Code(s): N17.9 - ACUTE KIDNEY FAILURE, UNSPECIFIED (7) Toe ulcer due to DM Code(s): E11.621 - TYPE 2 DIABETES MELLITUS WITH FOOT ULCER; L97.509 - NON- PRESSURE CHRONIC ULCER OTH PRT UNSP FOOT W UNSP SEVERITY Assessment/Plan IV ABX PER ID? S/P ANGIOPLASTY LEFT LOWER EXTREMITY LEG ELEVATION PLAVIX, ASA, STATINS SMOKING CESSATION ALL DISCUSSED WITH THE PATIENT DC PLANNING FOR TOMORROW
--- NOTE | 2018-03-15 13:24 | CONSULT ---
Consult Consult Specialty:: Podiatry Reason for Consultation:: Cellulitis left forefoot. wounds toes 3&4 left distally. - History of Present Illness Chief Complaint: Cellulitis and wounds left foot. History of Present Illness: Unable to get proper history from patient. Did see vascular intervention recently. - History Source History Provided By: Medical Record Limitations to Obtaining History: Poor Historian - Past Medical History Cardio/Vascular: Yes: AFIB, HTN, Hyperlipdemia Endocrine: Yes: Diabetes Insipidus - Past Surgical History Past Surgical History: Yes: None - Alcohol/Substance Use Hx Alcohol Use: No - Smoking History Smoking history: Former smoker Have you smoked in the past 12 months: No Aproximately how many cigarettes per day: 0 If you are a former smoker, when did you quit?: ONE MONTH AGO - Social History ADL: Independent History of Recent Travel: No Home Medications - Allergies Allergies/Adverse Reactions: Allergies Allergy/AdvReac Type Severity Reaction Status Date / Time almond Allergy Severe Hives Verified 03/11/18 09:59 apple Allergy Severe Hives Verified 03/11/18 09:59 paxton Allergy Severe Itching Verified 03/11/18 09:59 - Home Medications Home Medications: Ambulatory Orders Aspirin [ASA -] 81 mg PO HS 06/12/17 Losartan/Hydrochlorothiazide [Hyzaar 100-25 Tablet] 1 each PO DAILY 06/12/17 Metformin HCl 1,000 mg PO BID 06/12/17 Clopidogrel Bisulfate [Plavix -] 75 mg PO DAILY tablet 06/19/17 Baclofen 10 mg PO HS 03/10/18 Rosuvastatin [Crestor -] 20 mg PO DAILY 03/10/18 Metoprolol Succinate 100 mg PO DAILY 03/11/18 Physical Exam Vital Signs: Vital Signs Temperature 98.1 F 03/15/18 12:00 Pulse Rate 60 03/15/18 12:00 Respiratory Rate 18 03/15/18 12:00 Blood Pressure 117/75 03/15/18 12:00 O2 Sat by Pulse Oximetry (%) 98 03/15/18 09:00 Wound/Incision: Yes: Other (cellulitis left forefoot, +wounds distal tips toes 3 &4 left, -drainage, -mal odor, +pvd) Labs: CBC, BMP 03/15/18 07:00 03/15/18 07:00 Assessment/Plan cellulitis ulceration distal tip 3&4 left PVD Santyl to toe wounds left foot. Abx as per ID consult ordered. Will follow.
[2018-03-15] MEDS: DEXTROSE 5%-NORMAL SALINE 1,000 ML IV SCH ×2 (13:33→22:17)
[2018-03-15] MEDS: COLLAGENASE CLOSTRIDIUM HIST. 30 GRAMS TUBE TP SCH (17:39)
--- NOTE | 2018-03-15 21:31 | PN ---
Progress Note (short form) - Note Progress Note: Problems 1. BROOK 2. HTN 3. PVD 4. DM 5. HLD Current Medications Aspirin (Ecotrin -) 81 mg PO DAILY [facility] Last Admin: 03/15/18 10:00 Dose: 81 mg Baclofen (Lioresal -) 10 mg PO HS [facility] Last Admin: 03/14/18 21:10 Dose: 10 mg Clopidogrel Bisulfate (Plavix -) 75 mg PO DAILY [facility] Last Admin: 03/15/18 10:00 Dose: 75 mg Collagenase (Santyl -) 1 applic TP DAILY [facility]; Protocol Last Admin: 03/15/18 17:39 Dose: Not Given Hydralazine HCl (Apresoline -) 10 mg PO TID [facility] Last Admin: 03/15/18 13:32 Dose: 10 mg Dextrose/Sodium Chloride (D5-Ns -) 1,000 mls @ 83 mls/hr IV ASDIR [facility] Last Admin: 03/15/18 13:33 Dose: 83 mls/hr Insulin Aspart (Novolog Vial Sliding Scale -) 1 vial SQ ACHS [facility]; Protocol Last Admin: 03/15/18 17:34 Dose: Not Given Metoprolol Succinate (Toprol Xl -) 100 mg PO DAILY [facility] Last Admin: 03/15/18 10:00 Dose: 100 mg Morphine Sulfate (Morphine Sulfate) 2 mg IVPUSH Q4H PRN PRN Reason: PAIN LEVEL 7 - 10 Last Admin: 03/15/18 20:34 Dose: 2 mg Rosuvastatin Calcium (Crestor -) 20 mg PO [facility] Last Admin: 03/14/18 21:10 Dose: 20 mg Last Vital Signs Temp Pulse Resp BP Pulse Ox 97.9 F 60 20 140/71 98 03/15/18 16:30 03/15/18 16:30 03/15/18 16:30 03/15/18 16:30 03/15/18 09:00 alert in nad still with occ pain in le Lungs clear Heart reg Abd soft nontender Ext no edema CBC, BMP 03/15/18 07:00 03/15/18 07:00 CBC, BMP 03/14/18 07:30 03/14/18 07:30 IMP- PVD BROOK- renal function improving improving with IVF Plan -continue ivf cmp in am
[2018-03-15] MEDS ORDERED: ROSUVASTATIN CA 10 MG TABLET (FP) ONE (22:15)
[2018-03-15] MEDS: BACLOFEN 10 MG TABLET (FP) PO SCH (22:17)
[2018-03-15] MEDS: ROSUVASTATIN CA 20 MG TABLET (FP) PO SCH (22:17)
[2018-03-16] MEDS: DEXTROSE 5%-NORMAL SALINE 1,000 ML IV SCH (03:50)
[2018-03-16] MEDS: hydrALAZINE HCL 10 MG TABLET PO SCH ×2 (06:45→13:39)
[2018-03-16] MEDS: INSULIN SLIDING SCALE (NOVOLOG) 1 VIAL SQ SCH ×2 (07:08→12:15)
[2018-03-16] MEDS: MORPHINE SULFATE 2 MG/ML VIAL IVPUSH PRN (07:10)
[2018-03-16 07:34] LABS: ALK PHOS 82 U/L (45-117); ANION GAP 9 MMOL/L (8-16); BILIRUBIN,TOTAL 0.3 mg/dL (0.2-1); BLOOD UREA NITROGEN 17 mg/dL (7-18); CALCIUM 8.2 mg/dL (8.5-10.1); CHLORIDE 108 mmol/L (98-107); CO2 23 mmol/L (21-32); CREATININE 0.8 mg/dL (0.55-1.3); GLUCOSE,RANDOM 165 mg/dL (74-106); POTASSIUM 3.6 mmol/L (3.5-5.1); SGOT/AST 19 U/L (15-37); SGPT/ALT 21 U/L (13-61); SODIUM 140 mmol/L (136-145); TOT PROT 6.1 g/dl (6.4-8.2)
[2018-03-16] MEDS: ASPIRIN COATED 81 MG TABLET.EC PO SCH (09:30)
[2018-03-16] MEDS: CLOPIDOGREL BISULFATE 75 MG TABLET (FP) PO SCH (09:30)
[2018-03-16] MEDS: COLLAGENASE CLOSTRIDIUM HIST. 30 GRAMS TUBE TP SCH (09:31)
--- NOTE | 2018-03-16 10:35 | PN ---
Progress Note (short form) - Note Progress Note: POD 3, s/p CO2 Aortogram, CO2 LLE angiogram, SFA angioplasty (stent occlusion) Pt seen and examined. Reports pain and edema in L foot. Concerned about toes. Has been oob minimally. No other complaints. Denies cp/sob, n/v/d, calf pain/ edema. Vital Signs Temp 98.6 F 03/16/18 04:00 Pulse 73 03/16/18 04:00 Resp 18 03/16/18 04:00 BP 156/67 03/16/18 04:00 Pulse Ox 98 03/15/18 21:00 Intake & Output 03/15/18 03/15/18 03/16/18 11:59 23:59 11:59 Intake Total 1476 2482 581 Balance 1476 2482 581 Intake: IV 996 1332 581 D5-Ns - 1,000 ml @ 83 mls 996 1332 581 /hr IV ASDIR YARON Rx#: [id number] Oral 480 550 Tube Irrigant 600 Other: Voiding Method Toilet Toilet Toilet # Unmeasured Voids Void 2 1 Bowel Movement No CBC, BMP 03/15/18 07:00 03/16/18 06:00 Gen: awake, alert, nad sitting at edge of bed Resp: unlabored on room air Ext: R foot with no ulcerations or edema. L foot with 2+ pitting edema to ankle. +rubor of all toes, 3rd and fourth toes with moderate sized scab at tips of toes, 4th toe with scan purulent drainage, extremely ttp (pt noncompliant with exam). Vasc: Monophasic doppler signal in L dp/pt. A/P: 67 y/o F w/ PMHx HTN, HLD, DM, PVD s/p L SFA angioplasty/stent in June 2017, found to have stent occlusion, POD 3, s/p angioplasty of L SFA stent after being a/w L 3rd/4th toe pain and ulcers. L foot with reperfusion injury, scant purulent drainage from 4th toe -Follow closely for infection, recommend considering abx -Betadine solution to ulcers (Kennard with Betadine solution bid) -Continue Plavix 75mg daily and [id number] daily -Foot care reviewed with pt at length Dr Harper will see pt later today
--- NOTE | 2018-03-16 11:45 | DS ---
Physical Examination Vital Signs: Vital Signs Temperature 98.6 F 03/16/18 04:00 Pulse Rate 73 03/16/18 04:00 Respiratory Rate 18 03/16/18 04:00 Blood Pressure 156/67 03/16/18 04:00 O2 Sat by Pulse Oximetry (%) 98 03/15/18 21:00 Constitutional: Yes: Calm Cardiovascular: Yes: Regular Rate and Rhythm, S1, S2 Respiratory: Yes: CTA Bilaterally Gastrointestinal: Yes: Normal Bowel Sounds, Soft Extremities: Yes: Other (left foot edema slight discoloration of the 3 adn 4 toes) Neurological: Yes: Alert, Oriented Labs: CBC, BMP 03/15/18 07:00 03/16/18 06:00 Discharge Summary Reason For Visit: ISCHEMIC NECROSIS OF TOE Current Active Problems BROOK (acute kidney injury) (Acute) Claudication of left lower extremity (Acute) Ischemic necrosis of toe (Acute) Hospital Course: - Primary Care Physician PCP: Bernard Valladares - Admission Chief Complaint: Left foot pain, left toes #3, #4, Erythema History of Present Illness: This is a 67 y/o woman with a PMHx of: HTN, HLD, DM, PVD s/p stenting, Chronic left toe ulcer. Who presents to the ED with left foot/ 3rd, 4th toe pain, erythema. Patient was seen by Dr. Harper and was sent in for admission for LLE Angiogram. Patient reports being in the ED the night before for same, but left AMA due to frustration with boarding in the ED. Patient describes the pain as burning with numbness. Patient reports stubbing her toes and being seen for it without improvement. Patient denies fever, chills, cough, SOB, dizziness, CP, palpitations, AP, N/V/D, constipation, dysuria. Note: Operative Date: 03/13/18 Pre-Operative Diagnosis: LLE ischemia Operation: CO2 Aortogram, CO2 LLE angiogram, SFA angioplasty Findings: stent occlusion Post-Operative Diagnosis: Same as Pre-op Surgeon: Edvin Harper Anesthesia: Fractional Estimated Blood Loss (mls): 50 Operative Report Dictated: Yes seen by podiatry and vascular sx Condition: Fair - Instructions Diet, Activity, Other Instructions: po keflex 500mg po bid for 7 days follow up with dr Harper at wound clinic in one week Referrals: Jolie Sun MD [Primary Care Provider] - Edvin Harper MD [Staff Physician] - 1 Week Disposition: HOME - Home Medications Comprehensive Discharge Medication List: Ambulatory Orders Aspirin [ASA -] 81 mg PO HS 06/12/17 Losartan/Hydrochlorothiazide [Hyzaar 100-25 Tablet] 1 each PO DAILY 06/12/17 Metformin HCl 1,000 mg PO BID 06/12/17 Clopidogrel Bisulfate [Plavix -] 75 mg PO DAILY tablet 06/19/17 Baclofen 10 mg PO HS 03/10/18 Rosuvastatin [Crestor -] 20 mg PO DAILY 03/10/18 Metoprolol Succinate 100 mg PO DAILY 03/11/18
[2018-03-16] MEDS ORDERED: CEPHALEXIN MONOHYDRATE 500 MG CAPSULE (UD) PO SCH (12:00)
[2018-03-16 12:22] VITALS: BP 150/79; PULSE 85; TEMP 98.3
[2018-03-16] MEDS: ROSUVASTATIN CA 20 MG TABLET (FP) PO SCH (13:28)
--- NOTE | 2018-03-16 14:06 | PN ---
Progress Note, Physician History of Present Illness: Pt seen and examined at bedside. She is awake and alert. She denies shortness of breath. - Current Medication List Current Medications: Active Medications Aspirin (Ecotrin -) 81 mg PO DAILY [facility] Last Admin: 03/16/18 09:30 Dose: 81 mg Baclofen (Lioresal -) 10 mg PO HS [facility] Last Admin: 03/15/18 22:17 Dose: 10 mg Cephalexin HCl (Keflex -) 500 mg PO BID [facility] Last Admin: 03/16/18 13:28 Dose: 500 mg Clopidogrel Bisulfate (Plavix -) 75 mg PO DAILY [facility] Last Admin: 03/16/18 09:30 Dose: 75 mg Collagenase (Santyl -) 1 applic TP DAILY [facility]; Protocol Last Admin: 03/16/18 09:31 Dose: 1 applic Hydralazine HCl (Apresoline -) 10 mg PO TID [facility] Last Admin: 03/16/18 13:39 Dose: 10 mg Dextrose/Sodium Chloride (D5-Ns -) 1,000 mls @ 83 mls/hr IV ASDIR [facility] Last Admin: 03/16/18 03:50 Dose: 83 mls/hr Insulin Aspart (Novolog Vial Sliding Scale -) 1 vial SQ ACHS [facility]; Protocol Last Admin: 03/16/18 12:15 Dose: Not Given Metoprolol Succinate (Toprol Xl -) 100 mg PO DAILY [facility] Last Admin: 03/16/18 09:31 Dose: 100 mg Morphine Sulfate (Morphine Sulfate) 2 mg IVPUSH Q4H PRN PRN Reason: PAIN LEVEL 7 - 10 Last Admin: 03/16/18 07:10 Dose: 2 mg Rosuvastatin Calcium (Crestor -) 20 mg PO [facility] Last Admin: 03/16/18 13:28 Dose: 20 mg - Objective Vital Signs: Vital Signs Temperature 98.3 F 03/16/18 10:00 Pulse Rate 85 03/16/18 10:00 Respiratory Rate 16 03/16/18 10:00 Blood Pressure 150/79 03/16/18 10:00 O2 Sat by Pulse Oximetry (%) 98 03/16/18 09:00 Constitutional: Yes: Calm Eyes: Yes: Conjunctiva Clear HENT: Yes: Atraumatic Neck: Yes: Supple Cardiovascular: Yes: S1, S2 Respiratory: Yes: CTA Bilaterally Gastrointestinal: Yes: Soft Genitourinary: Yes: WNL Musculoskeletal: Yes: Other (left foot edema) Edema: Yes Labs: CBC, BMP 03/15/18 07:00 03/16/18 06:00 INR, PTT INR 0.99 (0.83-1.09) 03/12/18 19:41 Problem List - Problems (1) BROOK (acute kidney injury) Code(s): N17.9 - ACUTE KIDNEY FAILURE, UNSPECIFIED (2) Claudication of left lower extremity Code(s): I73.9 - PERIPHERAL VASCULAR DISEASE, UNSPECIFIED (3) Ischemic necrosis of toe Code(s): I96 - GANGRENE, NOT ELSEWHERE CLASSIFIED (4) Diabetes Code(s): E11.9 - TYPE 2 DIABETES MELLITUS WITHOUT COMPLICATIONS Qualifiers: Diabetes mellitus type: type 2 Diabetes mellitus complication detail: with foot ulcer (5) HTN (hypertension) Code(s): I10 - ESSENTIAL (PRIMARY) HYPERTENSION Assessment/Plan Current Medications Generic Name Dose Route Start Last Admin Trade Name Freq PRN Reason Stop Dose Admin Aspirin 81 mg 03/14/18 10:00 03/16/18 09:30 Ecotrin - PO 81 mg DAILY YARON Administration Baclofen 10 mg 03/13/18 22:00 03/15/18 22:17 Lioresal - PO 10 mg HS YARON Administration Cephalexin HCl 500 mg 03/16/18 12:00 03/16/18 13:28 Keflex - PO 500 mg BID YARON Administration Clopidogrel Bisulfate 75 mg 03/14/18 10:00 03/16/18 09:30 Plavix - PO 75 mg DAILY YARON Administration Collagenase 1 applic 03/15/18 17:15 03/16/18 09:31 Santyl - TP 1 applic DAILY YARON Administration Protocol Hydralazine HCl 10 mg 03/13/18 22:00 03/16/18 13:39 Apresoline - PO 10 mg TID YARON Administration Dextrose/Sodium Chloride 1,000 mls @ 83 mls/hr 03/13/18 19:32 03/16/18 03:50 D5-Ns - IV 83 mls/hr ASDIR YARON Administration Insulin Aspart 1 vial 03/13/18 22:00 03/16/18 12:15 Novolog Vial Sliding Scale - SQ Not Given ACHS YARON Protocol Metoprolol Succinate 100 mg 03/14/18 10:00 03/16/18 09:31 Toprol Xl - PO 100 mg DAILY YARON Administration Morphine Sulfate 2 mg 03/13/18 19:32 03/16/18 07:10 Morphine Sulfate IVPUSH 2 mg Q4H PRN Administration PAIN LEVEL 7 - 10 Rosuvastatin Calcium 20 mg 03/13/18 22:00 03/16/18 13:28 Crestor - PO 20 mg HS YARON Administration Impression 1. BROOK 2. HTN 3. PVD 4. DM 5. HLD Plan - renal function is improving - pt had co2 angio - can restart arb - monitor volume status - can d/c fluids - discussed with medical attending - will follow Dr Ferguson
--- NOTE | 2018-03-19 10:19 | OP ---
DATE OF OPERATION: 03/13/2018 PREOPERATIVE DIAGNOSIS: Left lower extremity ischemia. POSTOPERATIVE DIAGNOSIS: Left lower extremity ischemia. PROCEDURE: Carbon dioxide aortogram, carbon dioxide left lower extremity angiogram, superficial femoral artery angioplasty. FINDINGS: Stent occlusion. SURGEON: Edvin Zheng DO ANESTHESIA: Fractional. BLOOD LOSS: 50 mL. DESCRIPTION OF PROCEDURE: The patient is a 67-year-old female that is a smoker that had an SFA angioplasty with stent placement in June of 2017. Thereafter she continued smoking and was lost to followup and came into the office 2 days prior complaining of left foot pain after walking 1 or 2 blocks. She then decided to go to the ER and patient got admitted. We then went ahead and ordered an ultrasound for the patient in the emergency room showing that her SFA stents were closed. It was decided that the patient would need an angiogram. Patient had a creatinine of 2.5 and decided that she would need CO2 to prevent renal failure. Patient was consented for the procedure understanding all risks, benefits, and alternatives, and taken to the operating room and placed onto the operating table in supine manner. The area of the right and left groin were prepped and draped in a sterile surgical manner. We then injected 10 mL of lidocaine 1% over the right common femoral artery. We then used our Micropuncture needle to puncture the right common femoral artery. Micropuncture wire was inserted. Micropuncture sheath was inserted, and traditional 5-Khmer sheath was inserted. We then placed a 0.035 floppy guidewire up into the aorta followed by Omni Flush catheter. Using CO2, we then shot a CO2 aortogram showing that the aorta and iliac arteries were without any disease. We then used a 0.035 floppy guidewire and went up and over to the left common femoral artery, and our Omni Flush catheter followed. We then shot our CO2 left lower extremity angiogram showing that the common femoral artery and the profunda were patent. Proximal SFA were patent, but the entire SFA stent going down to the above-knee pop was occluded. At this point, we placed a 0.035 stiff guidewire into the SFA, removed our Omni Flush catheter. We then placed a 6 x 45 Crossover sheath and 5000 units of IV heparin were administered to the patient. We used a Quick-Cross catheter to selectively navigate through the stent and place a wire in the below knee pop. We then were able to place our Quick-Cross catheter. Then we shot a CO2 angiogram of the lower extremity and the below knee pop was patent and patient had 1 vessel runoff to the foot. At this point, we went ahead and used a 6 x 200 balloon and performed angioplasty of the entire stent. Performed angioplasty of the proximal SFA as well. Completion CO2 left lower extremity angiogram now showed that the SFA was patent, the stents were patent, and there was good runoff all the way into the foot in the form of the AT and DP. At this point, no more intervention was needed. We went ahead and brought our sheath up and over, and StarClose Device was successfully deployed in the right common femoral artery. Pressure was held for 5 minutes. After there was no more bleeding. The areas were then dried, and Dermabond was placed. Patient tolerated the procedure with no complication. Patient transferred to PACU in stable condition. EDVIN ZHENG DO [id number]
== END 2018-03-16 14:27 | disposition home or self-care (01) | DRG 253 ==
LOC: JER 18:03 → JERBED 21:34 → J8W 23:03
PROVIDERS: ADMIT Internal Medicine; ATTEND Family Medicine
PROC: B40GYZZ Plain Radiography of Left Lower Extremity Arteries using Other Contrast (ICD-10-PCS; 2018-03-13)
PROC: B40DYZZ Plain Radiography of Aorta and Bilateral Lower Extremity Arteries using Other Contrast (ICD-10-PCS; 2018-03-13)
PROC: 047L3ZZ Dilation of Left Femoral Artery, Percutaneous Approach (ICD-10-PCS; principal; 2018-03-13 16:30)
DX: E11.52 Type 2 diabetes mellitus with diabetic peripheral angiopathy with gangrene (principal); L97.528 Non-pressure chronic ulcer of other part of left foot with other specified severity; I96 Gangrene, not elsewhere classified; N17.9 Acute kidney failure, unspecified; L03.116 Cellulitis of left lower limb; I10 Essential (primary) hypertension; E78.5 Hyperlipidemia, unspecified; E11.51 Type 2 diabetes mellitus with diabetic peripheral angiopathy without gangrene; E11.621 Type 2 diabetes mellitus with foot ulcer; I87.8 Other specified disorders of veins; I48.91 Unspecified atrial fibrillation; Z87.891 Personal history of nicotine dependence; I77.89 Other specified disorders of arteries and arterioles
CPT/HCPCS: 36415; 76000-TC-FY; 80048; 80053; 82962; 83036; 85025; 85027; 85610; 85730; 86850; 86900; 86901; 93005; 93010; 94760; 99283-25; J0475; J1644; J7030

== ENCOUNTER 2018-12-24 08:44 | Day surgery (SDC) | payer BC ==
[2018-12-23 12:39] VITALS: BMI 22.6
[2018-12-24] MEDS ORDERED: HEPARIN NA (PORCINE) 5,000 UNITS/ML 1ML VIAL ONE (12:57)
[2018-12-24] MEDS ORDERED: ceFAZolin SODIUM 1 GM VIAL ONE (12:57)
[2018-12-24] MEDS ORDERED: MIDAZOLAM HCL 2 MG/2 ML SINGLE DOSE VIAL ONE (12:58)
[2018-12-24] MEDS ORDERED: oxyCODONE HCL 5 MG TABLET PO PRN (13:21)
[2018-12-24] MEDS ORDERED: LACTATED RINGERS SOLUTION 1,000 ML IV SCH (13:30)
[2018-12-24] MEDS ORDERED: ceFAZolin SODIUM 1 GM VIAL IVPB ONE (13:34)
[2018-12-24] MEDS ORDERED: PROPOFOL 20 ML ONE ×2 (13:41→14:41)
[2018-12-24] MEDS ORDERED: LIDOCAINE HCL/PF 2% SDV 5ML VIAL ONE (13:41)
[2018-12-24] MEDS ORDERED: LIDOCAINE HCL 1%, 10 MG/ML (20ML VIAL) PNB ONE (13:53)
[2018-12-24] MEDS ORDERED: CLOPIDOGREL BISULFATE 75 MG TABLET (FP) PO ONE ×2 (15:10→15:16)
--- NOTE | 2018-12-24 15:14 | HP ---
Admitting History and Physical - Admission Chief Complaint: Left lower extremity claudication. Pt had stents placed in left sfa in 2014. Never followed up after that. Limitations to Obtaining History: No Limitations - Past Medical History Cardiovascular: Yes: AFIB, HTN, Hyperlipdemia Endocrine: Yes: Diabetes Insipidus - Past Surgical History Past Surgical History: Yes: None - Smoking History Smoking history: Former smoker Have you smoked in the past 12 months: No Aproximately how many cigarettes per day: 0 If you are a former smoker, when did you quit?: 2018 - Alcohol/Substance Use Hx Alcohol Use: Yes (daily) - Social History ADL: Independent History of Recent Travel: No Home Medications - Allergies Allergies/Adverse Reactions: Allergies Allergy/AdvReac Type Severity Reaction Status Date / Time almond Allergy Severe Hives Verified 12/23/18 12:23 apple Allergy Severe Hives Verified 12/23/18 12:23 paxton Allergy Severe Itching Verified 12/23/18 12:23 No Known Drug Allergies Allergy Verified 12/23/18 12:23 - Home Medications Home Medications: Ambulatory Orders Aspirin [ASA -] 81 mg PO HS 06/12/17 Clopidogrel Bisulfate [Plavix -] 75 mg PO DAILY tablet 06/19/17 Baclofen 10 mg PO HS 03/10/18 Rosuvastatin [Crestor -] 20 mg PO DAILY 03/10/18 Metoprolol Succinate 100 mg PO DAILY 03/11/18 Collagenase Clostridium Hist. [Santyl -] 1 applic TP DAILY #1 tube MDD 1 hydrALAZINE HCL [Apresoline -] 10 mg PO TID #30 tablet MDD 3 03/16/18 Losartan Potassium 100 mg PO DAILY MDD 1 12/23/18 Metformin HCl [Glucophage] 1,000 mg PO BID 12/23/18 Review of Systems - Review of Systems Constitutional: reports: No Symptoms Eyes: reports: No Symptoms HENT: reports: No Symptoms Neck: reports: No Symptoms Cardiovascular: reports: No Symptoms Respiratory: reports: No Symptoms Gastrointestinal: reports: No Symptoms Genitourinary: reports: No Symptoms Musculoskeletal: reports: No Symptoms Integumentary: reports: No Symptoms Neurological: reports: No Symptoms Endocrine: reports: No Symptoms Hematology/Lymphatic: reports: No Symptoms Psychiatric: reports: No Symptoms Physical Examination Vital Signs: Vital Signs Temperature 98.2 F 12/24/18 10:25 Pulse Rate 49 L 12/24/18 10:25 Respiratory Rate 16 12/24/18 10:25 Blood Pressure 141/52 L 12/24/18 10:25 O2 Sat by Pulse Oximetry (%) 100 12/24/18 10:59 Constitutional: Yes: Well Nourished, No Distress, Calm Eyes: Yes: WNL, Conjunctiva Clear, EOM Intact HENT: Yes: WNL, Atraumatic, Normocephalic Neck: Yes: WNL, Supple, Trachea Midline Cardiovascular: Yes: WNL, Regular Rate and Rhythm Respiratory: Yes: WNL, Regular, CTA Bilaterally Gastrointestinal: Yes: WNL, Normal Bowel Sounds Musculoskeletal: Yes: WNL Extremities: Yes: WNL Edema: No Peripheral Pulses WNL: No Integumentary: Yes: WNL Neurological: Yes: WNL, Alert, Oriented ...Motor Strength: WNL Psychiatric: Yes: WNL Problem List - Problems (1) Claudication of left lower extremity Assessment/Plan: For angiogram, angioplasty today Code(s): I73.9 - PERIPHERAL VASCULAR DISEASE, UNSPECIFIED
--- NOTE | 2018-12-24 15:19 | OP ---
Operative Note - Note: Operative Date: 12/24/18 Pre-Operative Diagnosis: LLE claudication Operation: Aortogram, LLE angiogram, SFA angioplasty with SFA stent Findings: instent stenosis Post-Operative Diagnosis: Same as Pre-op Surgeon: Edvin Harper Anesthesia: Fractional Estimated Blood Loss (mls): 50 Operative Report Dictated: Yes
[2018-12-24] MEDS ORDERED: CLOPIDOGREL BISULFATE 75 MG TABLET (FP) ONE (15:20)
[2018-12-24 16:45] VITALS: TEMP 98.5
[2018-12-24 17:49] VITALS: BP 159/73; PULSE 62
--- NOTE | 2018-12-31 11:33 | OP ---
DATE OF OPERATION: 12/24/2018 PREOPERATIVE DIAGNOSIS: Left lower extremity claudication. POSTOPERATIVE DIAGNOSIS: Left lower extremity claudication. PROCEDURE: Aortogram, left lower extremity angiogram, superficial femoral artery angioplasty with superficial femoral artery stent placement. SURGEON: Edvin Zheng DO ANESTHESIA: Fractional. BLOOD LOSS: 50 mL. INDICATIONS: Patient is a 68-year-old female that last had a procedure with us in 2014. She had stents placed in her left lower extremity. Since 2014, she has not followed up with us. She has continued to smoke. Now comes into the ER and then to our office complaining of left foot pain for about a month. On physical exam, patient ad some rubor in her left foot. She had a preoperative ultrasound showing that the stents are occluded in her left leg. It was decided that patient would need an angiogram. Patient was consented for the procedure understanding all risks, benefits, alternatives and was then taken to the operating room. DESCRIPTION OF PROCEDURE: Once in the operating room, she was laid on the operating table in supine manner. The area of the right and left groin were prepped and draped in a sterile surgical manner. We then injected 10 mL of lidocaine 1% over the right common femoral artery. We then used our micropuncture needle, punctured the right common femoral artery. Micropuncture wire was inserted. Micropuncture sheath was inserted. Traditional 5-Czech sheath was inserted. We then placed a 0.035 floppy guidewire up into the aorta followed by an Omni Flush catheter. We then shot an aortogram via hand injection showing that the aorta and iliac arteries were without any disease. We then went in and used our 0.035 floppy guidewire, went up and over to the left common femoral artery, and our Omni Flush catheter followed. We then shot a left lower extremity angiogram via hand injection showing that the common femoral artery and the profunda were patent. The SFA stents were occluded, and the blood flow comes back in the distal adductor canal with severe disease beyond the stents. The patient has 2-vessel runoff into the foot. At this point, we placed a 0.035 stiff guidewire into the SFA stents. We removed our Omni Flush catheter. We placed a 6 x 45 crossover sheath up and over, 5000 units of IV heparin were administered to the patient. Using a Quick-Cross catheter, we were able to get across our occluded stents and placed a wire in the tibial artery. We then went ahead and used a 5 x 220 balloon and performed angioplasty of the SFA and the SFA stents. Completion angiogram now showed that the stents were patent, but beyond the stents there was still disease. We went ahead and placed a 6 x 6 Lifestent in the distal adductor canal and ballooned it in place using our 5 x 220 balloon. Completion angiogram now showed that the SFA was patent, the SFA stents were patent. There was good brisk flow down into the tibials, and the patient had a good palpable pulse. At this point, no more intervention was needed. We brought our sheath was up and over. StarClose device was successfully deployed in the right common femoral artery. Pressure was held for 5 minutes. After there was no more bleeding, the area was wet and dried and Dermabond was placed. Patient tolerated the procedure with no complications. Patient transferred to the PACU in stable condition. EDVIN ZHENG DO [id number]
== END 2018-12-24 17:54 | disposition home or self-care (01) ==
LOC: JASU-SURG 08:44
PROVIDERS: ATTEND Surgery Vascular Surgery
PROC: 047L3DZ Dilation of Left Femoral Artery with Intraluminal Device, Percutaneous Approach (ICD-10-PCS; principal; 2018-12-24 12:15)
DX: I70.212 Atherosclerosis of native arteries of extremities with intermittent claudication, left leg (principal); Z72.0 Tobacco use; I10 Essential (primary) hypertension; E11.9 Type 2 diabetes mellitus without complications; Z79.84 Long term (current) use of oral hypoglycemic drugs
CPT/HCPCS: 37226; C1877; 76000-TC-FY; 94760; J1644